=== PATIENT | female | born 1965 | race Caucasian/White ===

== ENCOUNTER 2017-12-29 16:52 | Emergency (ER) | payer MEDICAID ==
[~2017-12-29] VITALS: Ht 162.6 cm; Wt 59.1 kg
[~2017-12-29 16:52] MED LIST: PRED5TAB PO
== END 2017-12-29 17:44 | disposition left against medical advice (07) ==
LOC: ER 16:52
DX: K08.89 Other specified disorders of teeth and supporting structures (principal); Z53.21 Procedure and treatment not carried out due to patient leaving prior to being seen by health care provider

== ENCOUNTER 2018-07-13 00:15 | Emergency (ER) | payer MEDICAID | END 2018-07-13 00:57 | disposition left against medical advice (07) | LOC: ER 00:15 | DX: T63.301A Toxic effect of unspecified spider venom, accidental (unintentional), initial encounter (principal); Z53.21 Procedure and treatment not carried out due to patient leaving prior to being seen by health care provider; Y92.89 Other specified places as the place of occurrence of the external cause ==

== ENCOUNTER 2018-09-21 19:39 | Emergency (ER) | payer MEDICAID ==
[~2018-09-21] VITALS: Ht 162.6 cm; Wt 56.8 kg
[2018-09-21] MEDS ORDERED: morphine 4 MG/ML inj SYRINge IV ONE ×2 (20:50→22:55)
[2018-09-21] MEDS ORDERED: normal saline 1000ML IV soln IVB ONE (20:50)
[2018-09-21] MEDS ORDERED: iohexol 300mg/ml 100ml inj. ONE (20:52)
[2018-09-21 21:13] LABS: BASOPHILS # (AUTO) 0.1 X10'3 (0-0.2); EOSINOPHILS # (AUTO) 0.2 X10'3 (0-0.9); EOSINOPHILS % (AUTO) 2.3 % (0-6); HEMATOCRIT 40.5 % (35.0-45.0); HEMOGLOBIN 13.6 g/dl (12.0-16.0); LYMPHOCYTES # (AUTO) 2.6 X10'3 (1.1-4.8); LYMPHOCYTES % (AUTO) 28.4 % (21-51); MEAN CORPUSCULAR HEMOGLOBIN 29.4 PG (27.0-31.0); MEAN CORPUSCULAR HGB CONC 33.6 g/dL (33.0-36.5); MEAN CORPUSCULAR VOLUME 87.4 FL (78-98); MEAN PLATELET VOLUME 7.4 FL (7.4-10.4); MONOCYTES # (AUTO) 0.8 X10'3 (0-0.9); MONOCYTES % (AUTO) 8.3 % (2-12); NEUTROPHILS # (AUTO) 5.4 X10'3 (1.8-7.7); PLATELET COUNT 293 X10'3 (140-440); RED BLOOD COUNT 4.64 X10'6 (4.20-5.60); RED CELL DISTRIBUTION WIDTH 13.8 % (11.5-14.5); WHITE BLOOD COUNT 9.1 X10'3 (4.5-11.0)
[2018-09-21 21:21] LABS: ALANINE AMINOTRANSFERASE 40 U/L (12-78); ALBUMIN 3.6 G/DL (3.4-5.0); ALBUMIN/GLOBULIN RATIO 0.9 (1.1-1.5); ALKALINE PHOSPHATASE 55 IU/L (46-116); ANION GAP 8 (8-16); ASPARTATE AMINO TRANSFERASE 24 U/L (10-37); BILIRUBIN,TOTAL 0.4 MG/DL (0.1-1.0); BLOOD UREA NITROGEN 20 MG/DL (7-18); CALCIUM 8.9 MG/DL (8.5-10.1); CHLORIDE 104 MMOL/L (99-107); CREATININE 1.11 MG/DL (0.40-0.90); GLUCOSE 106 MG/DL (70-104); POTASSIUM 3.8 MMOL/L (3.5-5.1); SODIUM 139 MMOL/L (135-145); TOTAL PROTEIN 7.8 G/DL (6.4-8.2); eGFR 51 ML/MIN
[2018-09-21] MEDS ORDERED: HYDR-3965 PO (21:54)
[2018-09-21 22:22] VITALS: BP 189/112
== END 2018-09-21 23:06 | disposition home or self-care (01) ==
LOC: ER 19:39
DX: R07.81 Pleurodynia (principal); R10.11 Right upper quadrant pain; R50.9 Fever, unspecified; I10 Essential (primary) hypertension; J45.909 Unspecified asthma, uncomplicated; F17.200 Nicotine dependence, unspecified, uncomplicated; Z88.7 Allergy status to serum and vaccine; Z79.899 Other long term (current) drug therapy; W01.0XXA Fall on same level from slipping, tripping and stumbling without subsequent striking against object, initial encounter; Y93.89 Activity, other specified; Y92.89 Other specified places as the place of occurrence of the external cause; Y99.8 Other external cause status
CPT/HCPCS: 36415; 74176; 80053; 85025; 96374; 96376; 99284; J2270; J7030; Q9967

== ENCOUNTER 2019-04-07 16:55 | Emergency (ER) | payer MEDICAID ==
[~2019-04-07] VITALS: Ht 162.6 cm; Wt 59.1 kg
--- NOTE | 2019-04-07 17:18 | NUR ---
PT IS 53 YO FEMALE C/O LEFT FLANK PAIN, +N/V, VOMITED 3X IN THE PAST 2 DAYS, H/O KIDNEY STONES, "I NEED A STENT...WAS HOMELESS AND NOW I AM NOT....I JUST NEED A DOCTOR I MOVED FROM [place] TO HERE"
[2019-04-07 17:25] LABS: CLARITY,URINE SLIGHTLY CLOUDY (Clear); COLOR,URINE STRAW (Yellow); GLUCOSE, URINE NEGATIVE (Neg); KETONES,URINE NEGATIVE (Neg); LEUKOCYTE ESTERASE ,URINE SMALL (Neg); NITRITES, URINE POSITIVE (Neg); OCCULT BLOOD,URINE NEGATIVE (Neg); PROTEIN,URINE NEGATIVE (Neg); UA COLLECTION TYPE CLN CATCH MIDSTREAM; UROBILINOGEN,URINE 0.2 E.U/dL (0.2-1.0)
[2019-04-07] MEDS ORDERED: normal saline 1000ML IV soln IVB ONE (17:35)
[2019-04-07] MEDS ORDERED: ketorolac trometh. 30mg/ml inj. IV ONE (17:35)
[2019-04-07 17:38] LABS: SQUAMOUS EPITHELIAL CELL,UR MANY /LPF (FEW)
[2019-04-07 17:40] LABS: BACTERIA,URINE 4+ /HPF (Neg); RBC,URINE 0-2 /HPF (0-2); WBC CLUMPS,URINE FEW /HPF (NEGATIVE)
[2019-04-07 18:10] LABS: BASOPHILS % (AUTO) 0.2 % (0-1); EOSINOPHILS # (AUTO) 0.4 X10'3 (0-0.9); EOSINOPHILS % (AUTO) 4.7 % (0-6); HEMATOCRIT 40.8 % (35.0-45.0); HEMOGLOBIN 13.1 g/dl (12.0-16.0); LYMPHOCYTES # (AUTO) 3.5 X10'3 (1.1-4.8); LYMPHOCYTES % (AUTO) 40.1 % (21-51); MEAN CORPUSCULAR HEMOGLOBIN 27.9 PG (27.0-31.0); MEAN CORPUSCULAR VOLUME 87.3 FL (78-98); MEAN PLATELET VOLUME 7.8 FL (7.4-10.4); MONOCYTES # (AUTO) 0.7 X10'3 (0-0.9); MONOCYTES % (AUTO) 8.6 % (2-12); NEUTROPHILS % (AUTO) 46.4 % (42-75); PLATELET COUNT 285 X10'3 (140-440); RED BLOOD COUNT 4.67 X10'6 (4.20-5.60); RED CELL DISTRIBUTION WIDTH 13.5 % (11.5-14.5); WHITE BLOOD COUNT 8.6 X10'3 (4.5-11.0)
[2019-04-07 18:21] LABS: ALANINE AMINOTRANSFERASE 32 U/L (12-78); ALBUMIN 3.2 G/DL (3.4-5.0); ALBUMIN/GLOBULIN RATIO 0.7 (1.1-1.5); ALKALINE PHOSPHATASE 61 IU/L (46-116); ANION GAP 8 (8-16); ASPARTATE AMINO TRANSFERASE 23 U/L (10-37); BILIRUBIN,TOTAL 0.2 MG/DL (0.1-1.0); BLOOD UREA NITROGEN 26 MG/DL (7-18); CALCIUM 8.7 MG/DL (8.5-10.1); CHLORIDE 104 MMOL/L (99-107); CREATININE 1.04 MG/DL (0.40-0.90); GLUCOSE 82 MG/DL (70-104); SODIUM 142 MMOL/L (135-145); TOTAL CARBON DIOXIDE 30.3 MMOL/L (24-32); TOTAL PROTEIN 7.5 G/DL (6.4-8.2); eGFR 55 ML/MIN
[2019-04-07] MEDS ORDERED: BACDS PO (18:36)
[2019-04-07 18:59] VITALS: BP 124/93
== END 2019-04-07 19:02 | disposition home or self-care (01) ==
LOC: ER 16:57
DX: N39.0 Urinary tract infection, site not specified (principal); I10 Essential (primary) hypertension; J45.909 Unspecified asthma, uncomplicated; Z88.7 Allergy status to serum and vaccine; Z79.2 Long term (current) use of antibiotics; Z79.899 Other long term (current) drug therapy; Z72.0 Tobacco use
CPT/HCPCS: 36415; 80053; 81001; 85025; 96374; 99283; J1885; J7030

== ENCOUNTER 2019-07-13 14:17 | Emergency (ER) | payer MEDICAID ==
[~2019-07-13] VITALS: Ht 162.6 cm; Wt 60.0 kg
[2019-07-13] MEDS ORDERED: aspirin 81mg tab.chew PO ONE (14:25)
[2019-07-13 14:33] LABS: BASOPHILS # (AUTO) 0.1 X10'3 (0-0.2); EOSINOPHILS # (AUTO) 0.2 X10'3 (0-0.9); EOSINOPHILS % (AUTO) 1.9 % (0-6); HEMOGLOBIN 13.9 g/dl (12.0-16.0); LYMPHOCYTES # (AUTO) 3.2 X10'3 (1.1-4.8); LYMPHOCYTES % (AUTO) 31.4 % (21-51); MEAN CORPUSCULAR HEMOGLOBIN 28.6 PG (27.0-31.0); MEAN CORPUSCULAR HGB CONC 33.1 g/dL (33.0-36.5); MEAN CORPUSCULAR VOLUME 86.4 FL (78-98); MEAN PLATELET VOLUME 7.3 FL (7.4-10.4); MONOCYTES # (AUTO) 0.8 X10'3 (0-0.9); MONOCYTES % (AUTO) 8.3 % (2-12); NEUTROPHILS # (AUTO) 5.8 X10'3 (1.8-7.7); NEUTROPHILS % (AUTO) 57.4 % (42-75); PLATELET COUNT 296 X10'3 (140-440); RED BLOOD COUNT 4.86 X10'6 (4.20-5.60); RED CELL DISTRIBUTION WIDTH 13.6 % (11.5-14.5); WHITE BLOOD COUNT 10.2 X10'3 (4.5-11.0)
[2019-07-13 14:48] LABS: ALANINE AMINOTRANSFERASE 48 U/L (12-78); ALBUMIN 4.1 G/DL (3.4-5.0); ALKALINE PHOSPHATASE 69 IU/L (46-116); ANION GAP 6 (8-16); ASPARTATE AMINO TRANSFERASE 37 U/L (10-37); BILIRUBIN,TOTAL 0.6 MG/DL (0.1-1.0); BLOOD UREA NITROGEN 15 MG/DL (7-18); BUN/CREATININE RATIO 14.4 (6.6-38.0); CALCIUM 9.2 MG/DL (8.5-10.1); CHLORIDE 104 MMOL/L (99-107); CREATININE 1.04 MG/DL (0.40-0.90); GLUCOSE 107 MG/DL (70-104); POTASSIUM 3.7 MMOL/L (3.5-5.1); SODIUM 140 MMOL/L (135-145); TOTAL CARBON DIOXIDE 29.9 MMOL/L (24-32); TOTAL PROTEIN 8.3 G/DL (6.4-8.2); eGFR 55 ML/MIN
[2019-07-13 14:54] LABS: MAGNESIUM 1.9 MG/DL (1.5-2.4)
[2019-07-13] MEDS ORDERED: LORazepam 2 mg/ml vial IV ONE (15:10)
[2019-07-13] MEDS ORDERED: ondansetron/PF 4mg/2ml inj IV ONE (15:10)
[2019-07-13] MEDS ORDERED: glucagon, human recombinant 4 MG in normal saline 100ml IV soln 100 ML IV ONE ×2 (15:10)
--- NOTE | 2019-07-13 15:30 | NUR ---
PT. OFF TO GI LAB VIA W/C WITH JUN
[2019-07-13] MEDS ORDERED: normal saline 1000ML IV soln IVB ONE (15:45)
[2019-07-13] MEDS ORDERED: MIDAZolam 5mg/5ml vial ONE (15:57)
[2019-07-13] MEDS ORDERED: fentaNYL/PF 50MCG/1 ML 2ML syringe ONE (15:57)
[2019-07-13] MEDS ORDERED: LIDOcaine Viscous 15ml cup ONE (15:57)
[2019-07-13 16:10] VITALS: BP 161/98
[2019-07-13] MEDS ORDERED: diphenhydrAMINE 50 mg/ml inj ONE (16:33)
[2019-07-13 16:55] VITALS: BP 152/100
[2019-07-13 17:05] VITALS: BP 145/99
[2019-07-13 17:15] VITALS: BP 137/89
[2019-07-13 17:27] VITALS: BP 138/92
[2019-07-13] MEDS ORDERED: OMEP40CA13 PO (17:36)
--- NOTE | 2019-07-13 17:45 | NUR ---
PT. BACK FROM GI LAB WITH RN WITH GI LAB: RECEIVED 25MG OF BENADRYL, 5MCG VERSED, 125MCG FENTANYL ZERO FOOD OR LIQUIDS FOR ONE HOUR START ON CLEAR LIQUIDS, TOMORROW FULL LIQUID, 2 DAYS OUT SOFT FOODS
[2019-07-13 18:42] VITALS: BP 129/82
== END 2019-07-13 19:03 | disposition home or self-care (01) ==
LOC: ER 14:17
DX: T18.198A Other foreign object in esophagus causing other injury, initial encounter (principal); R51 Headache; I10 Essential (primary) hypertension; J45.909 Unspecified asthma, uncomplicated; F10.99 Alcohol use, unspecified with unspecified alcohol-induced disorder; H57.13 Ocular pain, bilateral; Z88.7 Allergy status to serum and vaccine; Z79.899 Other long term (current) drug therapy; X58.XXXA Exposure to other specified factors, initial encounter; Y93.89 Activity, other specified; Y92.89 Other specified places as the place of occurrence of the external cause; Y99.8 Other external cause status; Y90.9 Presence of alcohol in blood, level not specified
CPT/HCPCS: 36415; 43247; 43248; 71045; 80053; 83735; 83880; 84484; 85025; 93005; 96365; 96375; 99152; 99153; 99285; C1769; C1773; J1200; J1610; J2060; J2250; J2405; J3010; J7030; J7040

== ENCOUNTER 2019-07-18 16:45 | Emergency (ER) | payer MEDICAID ==
[~2019-07-18] VITALS: Ht 162.6 cm; Wt 60.0 kg
[~2019-07-18 16:45] MED LIST changes: +OMEP40CA13 PO
[2019-07-18] MEDS ORDERED: normal saline 1000ML IV soln IVB ONE (17:10)
[2019-07-18] MEDS ORDERED: LORazepam 2 mg/ml vial IV ONE (17:10)
[2019-07-18] MEDS ORDERED: pantoprazole 40 MG vial IV ONE (17:10)
[2019-07-18] MEDS ORDERED: ondansetron/PF 4mg/2ml inj IV ONE (17:10)
[2019-07-18 17:54] LABS: BASOPHILS # (AUTO) 0.1 X10'3 (0-0.2); BASOPHILS % (AUTO) 0.9 % (0-1); EOSINOPHILS # (AUTO) 0.2 X10'3 (0-0.9); EOSINOPHILS % (AUTO) 2.1 % (0-6); HEMATOCRIT 39.6 % (35.0-45.0); HEMOGLOBIN 13.2 g/dl (12.0-16.0); LYMPHOCYTES # (AUTO) 3.5 X10'3 (1.1-4.8); LYMPHOCYTES % (AUTO) 41.2 % (21-51); MEAN CORPUSCULAR HEMOGLOBIN 28.3 PG (27.0-31.0); MEAN CORPUSCULAR HGB CONC 33.3 g/dL (33.0-36.5); MEAN CORPUSCULAR VOLUME 84.9 FL (78-98); MEAN PLATELET VOLUME 7.2 FL (7.4-10.4); MONOCYTES # (AUTO) 0.5 X10'3 (0-0.9); MONOCYTES % (AUTO) 5.4 % (2-12); NEUTROPHILS # (AUTO) 4.3 X10'3 (1.8-7.7); NEUTROPHILS % (AUTO) 50.4 % (42-75); PLATELET COUNT 355 X10'3 (140-440); RED BLOOD COUNT 4.67 X10'6 (4.20-5.60); RED CELL DISTRIBUTION WIDTH 13.2 % (11.5-14.5); WHITE BLOOD COUNT 8.5 X10'3 (4.5-11.0)
[2019-07-18 18:01] LABS: PARTIAL THROMBOPLASTIN TIME 26 SECONDS (22-32)
[2019-07-18 18:03] LABS: ALANINE AMINOTRANSFERASE 40 U/L (12-78); ALBUMIN 3.7 G/DL (3.4-5.0); ALBUMIN/GLOBULIN RATIO 0.9 (1.1-1.5); ALKALINE PHOSPHATASE 64 IU/L (46-116); ANION GAP 11 (8-16); ASPARTATE AMINO TRANSFERASE 40 U/L (10-37); BILIRUBIN,TOTAL 0.3 MG/DL (0.1-1.0); BLOOD UREA NITROGEN 16 MG/DL (7-18); BUN/CREATININE RATIO 13.7 (6.6-38.0); CALCIUM 8.8 MG/DL (8.5-10.1); CHLORIDE 103 MMOL/L (99-107); CREATININE 1.17 MG/DL (0.40-0.90); GLUCOSE 91 MG/DL (70-104); SODIUM 141 MMOL/L (135-145); TOTAL CARBON DIOXIDE 27.3 MMOL/L (24-32); eGFR 48 ML/MIN
[2019-07-18 18:11] LABS: ETHANOL 0.159 GM/DL (0.0-0.010); MAGNESIUM 1.7 MG/DL (1.5-2.4)
[2019-07-18 18:42] LABS: CLARITY,URINE SLIGHTLY CLOUDY (Clear); COLOR,URINE YELLOW (Yellow); GLUCOSE, URINE NEGATIVE (Neg); KETONES,URINE NEGATIVE (Neg); LEUKOCYTE ESTERASE ,URINE LARGE (Neg); NITRITES, URINE POSITIVE (Neg); OCCULT BLOOD,URINE SMALL (Neg); PROTEIN,URINE NEGATIVE (Neg); UROBILINOGEN,URINE 0.2 E.U/dL (0.2-1.0)
[2019-07-18 18:51] LABS: UA COLLECTION TYPE CLN CATCH MIDSTREAM
[2019-07-18 18:52] LABS: BACTERIA,URINE 1+ /HPF (Neg); RBC,URINE 0-2 /HPF (0-2); SQUAMOUS EPITHELIAL CELL,UR FEW /LPF (FEW); WBC CLUMPS,URINE FEW /HPF (NEGATIVE); WBC,URINE 50-100 /HPF (0-4)
[2019-07-18] MEDS ORDERED: CefTRIAXone 2gm/D5W 50ml 50 ML IV ONE (19:00)
[2019-07-18] MEDS ORDERED: PANT20TA3 PO (19:01)
[2019-07-18] MEDS ORDERED: CEPH250T PO (19:01)
--- NOTE | 2019-07-18 19:24 | NUR ---
Pt's family member Mel Allison phoned to pick her up for transportation home after discharge.
[2019-07-18 19:35] VITALS: BP 151/91
[2019-07-18] MEDS ORDERED: ALBU6.7H9 INH (19:39)
== END 2019-07-18 19:48 | disposition home or self-care (01) ==
LOC: ER 16:45
DX: R07.89 Other chest pain (principal); F10.920 Alcohol use, unspecified with intoxication, uncomplicated; R11.10 Vomiting, unspecified; N39.0 Urinary tract infection, site not specified; I10 Essential (primary) hypertension; J45.909 Unspecified asthma, uncomplicated; Z87.01 Personal history of pneumonia (recurrent); Z88.7 Allergy status to serum and vaccine; Z79.899 Other long term (current) drug therapy; Y90.9 Presence of alcohol in blood, level not specified
CPT/HCPCS: 36415; 71045; 80053; 80320; 81001; 83735; 83880; 84484; 85025; 85610; 85730; 87077; 87088; 87186; 93005; 96361; 96365; 96375; 99284; C9113; J0696; J2060; J2405; J7030

== ENCOUNTER 2019-07-27 22:17 | Inpatient (IN) | payer MEDICAID ==
[~2019-07-27] VITALS: Ht 162.6 cm; Wt 59.0 kg
[~2019-07-27 22:17] MED LIST changes: +ALBU6.7H9 INH; +PANT20TA3 PO; -PRED5TAB PO
[2019-07-27 23:28] LABS: CLARITY,URINE CLOUDY (Clear); COLOR,URINE YELLOW (Yellow); GLUCOSE, URINE NEGATIVE (Neg); KETONES,URINE NEGATIVE (Neg); LEUKOCYTE ESTERASE ,URINE LARGE (Neg); NITRITES, URINE POSITIVE (Neg); OCCULT BLOOD,URINE SMALL (Neg); PH,URINE 5.5 (4.8-8.0); PROTEIN,URINE NEGATIVE (Neg); UROBILINOGEN,URINE 0.2 E.U/dL (0.2-1.0)
[2019-07-27 23:32] LABS: UA COLLECTION TYPE CLN CATCH MIDSTREAM
[2019-07-27 23:34] LABS: BACTERIA,URINE 3+ /HPF (Neg); MUCUS STRANDS MODERATE /LPF (Neg); RBC,URINE 0-2 /HPF (0-2); SQUAMOUS EPITHELIAL CELL,UR MODERATE /LPF (FEW); WBC,URINE TNTC /HPF (0-4)
[2019-07-27] MEDS ORDERED: normal saline 1000ML IV soln IVB ONE (23:55)
[2019-07-27] MEDS ORDERED: morphine 4 MG/ML inj SYRINge IV ONE (23:55)
[2019-07-27] MEDS ORDERED: ondansetron/PF 4mg/2ml inj IV ONE (23:55)
[2019-07-27] MEDS ORDERED: pantoprazole 40 MG vial IV ONE (23:55)
[2019-07-28] VITALS (8 sets, daily range): BP systolic 115–180; BP diastolic 67–95
[2019-07-28] MEDS ORDERED: iohexol 300mg/ml 100ml inj. ONE (00:11)
[2019-07-28 00:27] LABS: BASOPHILS # (AUTO) 0.1 X10'3 (0-0.2); BASOPHILS % (AUTO) 0.9 % (0-1); EOSINOPHILS # (AUTO) 0.2 X10'3 (0-0.9); EOSINOPHILS % (AUTO) 1.6 % (0-6); HEMATOCRIT 36.9 % (35.0-45.0); HEMOGLOBIN 12.2 g/dl (12.0-16.0); LYMPHOCYTES # (AUTO) 2.7 X10'3 (1.1-4.8); LYMPHOCYTES % (AUTO) 21.6 % (21-51); MEAN CORPUSCULAR HEMOGLOBIN 28.2 PG (27.0-31.0); MEAN CORPUSCULAR VOLUME 85.4 FL (78-98); MEAN PLATELET VOLUME 7.1 FL (7.4-10.4); MONOCYTES # (AUTO) 1.1 X10'3 (0-0.9); NEUTROPHILS # (AUTO) 8.3 X10'3 (1.8-7.7); NEUTROPHILS % (AUTO) 66.9 % (42-75); PLATELET COUNT 310 X10'3 (140-440); RED BLOOD COUNT 4.32 X10'6 (4.20-5.60); RED CELL DISTRIBUTION WIDTH 13.6 % (11.5-14.5); WHITE BLOOD COUNT 12.4 X10'3 (4.5-11.0)
[2019-07-28 00:45] LABS: ALANINE AMINOTRANSFERASE 39 U/L (12-78); ALBUMIN 3.4 G/DL (3.4-5.0); ALBUMIN/GLOBULIN RATIO 0.8 (1.1-1.5); ALKALINE PHOSPHATASE 66 IU/L (46-116); ANION GAP 10 (8-16); ASPARTATE AMINO TRANSFERASE 27 U/L (10-37); BILIRUBIN,TOTAL 0.7 MG/DL (0.1-1.0); BLOOD UREA NITROGEN 15 MG/DL (7-18); BUN/CREATININE RATIO 18.1 (6.6-38.0); CALCIUM 8.4 MG/DL (8.5-10.1); CHLORIDE 104 MMOL/L (99-107); CREATININE 0.83 MG/DL (0.40-0.90); GLUCOSE 109 MG/DL (70-104); POTASSIUM 3.7 MMOL/L (3.5-5.1); SODIUM 139 MMOL/L (135-145); TOTAL CARBON DIOXIDE 25.2 MMOL/L (24-32); TOTAL PROTEIN 7.5 G/DL (6.4-8.2); eGFR 71 ML/MIN
--- NOTE | 2019-07-28 00:59 | NUR ---
PATIENT BACK IN ROOM FROM CT, IN [place] COVERS ON EYES CLOSED RR EVEN UN LABORED NO OBSERVABLE S/S OF ACUTE STRESS AT THIS TIME WILL CONTINUE TO MONITOR
[2019-07-28] MEDS ORDERED: CefTRIAXone/D5W-Rocephin 1gm 50 ML IV ONE (01:30)
[2019-07-28] MEDS ORDERED: morphine 4 MG/ML inj SYRINge IV ONE (01:35)
[2019-07-28] MEDS ORDERED: magnesium hydroxide 30ml (MOM) UD suspension PO PRN (01:50)
[2019-07-28] MEDS ORDERED: acetaminophen 325mg tablet PO PRN (01:50)
[2019-07-28] MEDS ORDERED: magnesium Cl slow-release 64mg tablet PO PRN (01:50)
[2019-07-28] MEDS ORDERED: ondansetron/PF 4mg/2ml inj IV PRN ×2 (01:50→17:40)
[2019-07-28] MEDS ORDERED: morphine 2 MG/ML inj. syringe IV PRN (01:50)
[2019-07-28] MEDS ORDERED: magnesium 4gm in 100ml NS 100 ML IV PRN (01:50)
[2019-07-28] MEDS ORDERED: HYDROcodone/acetaminophen 5mg/325mg tablet PO PRN (01:50)
[2019-07-28] MEDS ORDERED: potassium CL 10mEq/100ml bag 100 ML IV PRN ×2 (01:50)
[2019-07-28] MEDS ORDERED: mag hydrox/Alum hydrox/simeth 30ml oral suspension PO PRN (01:50)
[2019-07-28] MEDS ORDERED: potassium Cl 20 mEq SR tablet PO PRN ×2 (01:50)
[2019-07-28] MEDS ORDERED: magnesium 2GM in 50ml NS 50 ML IV PRN (01:50)
[2019-07-28] MEDS ORDERED: NO HOME MEDS (02:10)
--- NOTE | 2019-07-28 03:00 | NUR ---
Meir royal in ED - 07/28/19 at 0513 by SANCHO PATIENT IN BED EYES CLOSED COVERS ON RR EVEN UN LABORED NO OBSERVABLE S/S OF ACUTE STRESS /PAIN AT THIS TIME WILL CONTINUE TO MONITOR
--- NOTE | 2019-07-28 03:00 | NUR ---
PATIENT IN BED EYES CLOSED COVERS ON RR EVEN UN LABORED NO OBSERVABLE S/S OF ACUTE STRESS AT THIS TIME WILL CONTINUE TO MONITOR
[2019-07-28] MEDS ORDERED: HYDROmorphone inj. 0.5 MG/0.5 ML DISP.SYRIN IV ONE (03:50)
--- NOTE | 2019-07-28 05:12 | NUR ---
PATIENT IN BED EYES CLOSED RR EVEN UN LABORED NO OBSERVABLE S/S OF ACUTE STRESS /PAIN AT THIS TIME WILL CONTINUE TO MONITOR
--- NOTE | 2019-07-28 05:30 | NUR ---
PATIENT UP WITH STANDBYE ASSIST TO THE BATHROOM WITH OUT ANY TROUBLE PATIENT WAS OBSERVED AMBULATING WITH A STEADY GAIT
--- NOTE | 2019-07-28 05:46 | NUR ---
Meir royal in [facility] - 07/28/[address] ESTRADA AT BEDSIDE, STATES " SHE CAN HAVE A LITTLE WATER." BUT NEEDS TO STAY NPO
--- NOTE | 2019-07-28 05:47 | NUR ---
Ta ESTRADA AT BEDSIDE, STATES " PATIENT CAN HAVE A LITTLE WATER BUT STAY NPO."
--- NOTE | 2019-07-28 06:30 | NUR ---
SBAR TO JEFERSON BARAHONA NO QUESTIONS OR CONCERNS AFTER ASSUMING CARE
[2019-07-28] MEDS: K and/or MAG REPLACEMENT MC SCH ×2 (08:00→19:35)
[2019-07-28] MEDS: CefTRIAXone 2gm/D5W 50ml 50 ML IV SCH (10:18)
[2019-07-28 10:23] LABS: MAGNESIUM 1.9 MG/DL (1.5-2.4)
--- NOTE | 2019-07-28 15:41 | NUR ---
confirmed with Dr. Herrera that is was ok for pt. to be NPO at this time with no orders for IV fluids. no new orders at this time.
[2019-07-28 16:05] LABS: PARTIAL THROMBOPLASTIN TIME 26 SECONDS (22-32)
[2019-07-28] MEDS ORDERED: ringers solution, lacted 1,000 ML IV SCH (17:40)
[2019-07-28] MEDS ORDERED: fentaNYL/PF 50MCG/1 ML 2ML syringe IV PRN ×2 (17:40)
[2019-07-28] MEDS ORDERED: labetalol 20mg/4ml (5mg/ml) syringe IV PRN (17:40)
[2019-07-28] MEDS ORDERED: hydrALAZINE 20mg/ml inj. IV PRN (17:40)
[2019-07-28] MEDS ORDERED: morphine 4 MG/ML inj SYRINge IV PRN ×2 (17:40)
--- NOTE | 2019-07-28 18:05 | NUR ---
pt. was taken to OR for procedure. report called into JUN Truong in Short Stay.
--- NOTE | 2019-07-28 18:30 | NUR ---
Problems reprioritized. Patient report given, questions answered & plan of care reviewed with JUN Richardson.
[2019-07-28] MEDS ORDERED: iohexol 300 MG/1 ML 50ml polymer ONE (18:50)
[2019-07-28] MEDS ORDERED: midazolam 2 mg/2 ml injection ONE (19:00)
[2019-07-28] MEDS ORDERED: fentaNYL/PF 50MCG/1 ML 2ML syringe ONE (19:00)
[2019-07-28] MEDS ORDERED: LIDOcaine 2% (20mg/ml) 5ml vial ONE (19:02)
[2019-07-28] MEDS ORDERED: propofol inj 20 ML IV ONE (19:02)
[2019-07-28] MEDS ORDERED: ondansetron/PF 4mg/2ml inj ONE (19:02)
[2019-07-28] MEDS ORDERED: dexamethasone sod phosphate 10mg/ml inj ONE (19:08)
[2019-07-28] MEDS ORDERED: sevoflurane 250ml liquid IH ONE (19:08)
--- NOTE | 2019-07-28 19:44 | NUR ---
Received from OR via SURGICAL BED , accompanied by Anesthesiologist LATIA and report given by Anesthesiolgist. PATIENT WITH 20G PIV IN RIGHT UE RUNNING LR AT 100. NO DRAINS. NO INCISIONS. NO C.O. AT THIS TIME. VSS. Addendum: 07/28/19 at 2001 by Alexi Shore RN, RN Amended: Links added.
--- NOTE | 2019-07-28 20:24 | NUR ---
ALL CRITERIA FOR TRANSFER TO THE FLOOR HAS BEEN ACHIEVED. VSS. BED LOW, CALL LIGHT AND VS. SET IN PLACE. RN PRESENT TO ACCEPT CARE. PATIENT RESTING COMFORTABLY IN BED. BELONGINGS SENT WITH PATIENT. DRESSINGS CDI. Addendum: 07/28/19 at 2035 by Alexi Shore RN RN Amended: Links added.
--- NOTE | 2019-07-28 20:24 | NUR ---
ALL CRITERIA FOR TRANSFER TO THE FLOOR HAS BEEN ACHIEVED. VSS. BED LOW, CALL LIGHT AND VS. SET IN PLACE. RN PRESENT TO ACCEPT CARE. PATIENT RESTING COMFORTABLY IN BED. BELONGINGS SENT WITH PATIENT. DRESSINGS CDI. Addendum: 07/28/19 at 2025 by Alexi Shore RN RN Amended: Links added.
[2019-07-28] MEDS: morphine 2 MG/ML inj. syringe IV PRN (20:52)
[2019-07-28] MEDS ORDERED: HYDROmorphone inj. 0.5 MG/0.5 ML DISP.SYRIN IV PRN (21:45)
[2019-07-28] MEDS: HYDROmorphone 1 mg/ml syringe IV PRN (21:56)
--- NOTE | 2019-07-28 22:00 | NUR ---
2100-Patient return back from recovery. Per report from Alexi BARAHONA, Patient had void 50ml prior to arriving to the floor. Patient in excruciating pain right when patient return to room. Patient stated she feels like she needs to pee, Patient was able to void in the toliet no hat was in there at the time. Patient instructed to void in the hat next time, and educated that we will be straining her urine. Patient states understanding. Bladder scan show only 16ml. MD notified of pain. Orders for Dilaudid for severe pain, Patient also started on Ditropan and flomax tonight.
[2019-07-28] MEDS ORDERED: tamsulosin 0.4mg capsule PO SCH (22:05)
[2019-07-28] MEDS: oxybutynin 5mg tablet PO SCH (22:26)
[2019-07-29] VITALS: BP 125/82
[2019-07-29] MEDS: HYDROmorphone 1 mg/ml syringe IV PRN ×3 (01:42→12:46)
[2019-07-29 04:00] VITALS: BP 122/104
--- NOTE | 2019-07-29 04:30 | NUR ---
Continue with pain management. Patient continue to to have left flank pain. Straining urine. No stones yet.
[2019-07-29] MEDS: morphine 2 MG/ML inj. syringe IV PRN (04:52)
[2019-07-29 05:30] LABS: BASOPHILS % (AUTO) 0.4 % (0-1); EOSINOPHILS % (AUTO) 0.1 % (0-6); HEMATOCRIT 39.6 % (35.0-45.0); HEMOGLOBIN 12.9 g/dl (12.0-16.0); LYMPHOCYTES # (AUTO) 1.5 X10'3 (1.1-4.8); LYMPHOCYTES % (AUTO) 22.9 % (21-51); MEAN CORPUSCULAR HEMOGLOBIN 28.1 PG (27.0-31.0); MEAN CORPUSCULAR HGB CONC 32.7 g/dL (33.0-36.5); MEAN CORPUSCULAR VOLUME 86.1 FL (78-98); MEAN PLATELET VOLUME 7.8 FL (7.4-10.4); MONOCYTES # (AUTO) 0.1 X10'3 (0-0.9); MONOCYTES % (AUTO) 2.3 % (2-12); NEUTROPHILS # (AUTO) 4.7 X10'3 (1.8-7.7); NEUTROPHILS % (AUTO) 74.3 % (42-75); PLATELET COUNT 346 X10'3 (140-440); RED CELL DISTRIBUTION WIDTH 13.8 % (11.5-14.5); WHITE BLOOD COUNT 6.3 X10'3 (4.5-11.0)
[2019-07-29 05:52] LABS: ALBUMIN 3.4 G/DL (3.4-5.0); ANION GAP 10 (8-16); BLOOD UREA NITROGEN 12 MG/DL (7-18); BUN/CREATININE RATIO 12.9 (6.6-38.0); CALCIUM 8.8 MG/DL (8.5-10.1); CHLORIDE 106 MMOL/L (99-107); CREATININE 0.93 MG/DL (0.40-0.90); GLUCOSE 135 MG/DL (70-104); MAGNESIUM 1.9 MG/DL (1.5-2.4); POTASSIUM 4.6 MMOL/L (3.5-5.1); SODIUM 143 MMOL/L (135-145); eGFR 63 ML/MIN
[2019-07-29 06:00] VITALS: BP 121/70
--- NOTE | 2019-07-29 06:30 | NUR ---
Problems reprioritized. Patient report given, questions answered & plan of care reviewed with Stew BARAHONA.
--- NOTE | 2019-07-29 06:39 | NUR ---
Patient in room REJI 360. I have received report from JUN Serrano and had the opportunity to ask questions and assume patient care.
[2019-07-29] MEDS: K and/or MAG REPLACEMENT MC SCH (07:10)
[2019-07-29] MEDS: oxybutynin 5mg tablet PO SCH ×2 (08:09→12:45)
[2019-07-29] MEDS: CefTRIAXone 2gm/D5W 50ml 50 ML IV SCH (08:19)
[2019-07-29] MEDS ORDERED: pneumococcal 23-VAL P-sac vacc 25 mcg/0.5ml vial IMVAC ONE (10:00)
[2019-07-29 12:00] VITALS: BP 138/75
[2019-07-29] MEDS ORDERED: AMOX-422 PO (12:08)
[2019-07-29] MEDS ORDERED: HYDR-4383 PO (12:08)
--- NOTE | 2019-07-29 13:09 | NUR ---
Per patient her ride for discharge will be here this evening.
--- NOTE | 2019-07-29 13:09 | NUR ---
PAGER ID: [phone] MESSAGE: [id number] Alexus Almanza was wondering if she could get an albuterol inhaler here. JUN Mancuso Ext [phone]
--- NOTE | 2019-07-29 15:04 | NUR ---
Discharged. Stable per MD for DC. PIV taken out. Educated on DC instructions, meds and follow-up. Took all belongings. Daughter was patient's ride. Medicare DC rights signed. ID band cut off. Med called into [facility] on [address].
== END 2019-07-29 15:08 | disposition home or self-care (01) | DRG 463 ==
LOC: ER 22:18 → ED HOLD 07-28 02:21 → EDBEDREQ 07-28 05:36 → SUR 3N 07-28 06:59
PROVIDERS: ADMIT Hospitalist; ATTEND Family Medicine
PROC: BT1F1ZZ Fluoroscopy of Left Kidney, Ureter and Bladder using Low Osmolar Contrast (ICD-10-PCS; 2019-07-28)
PROC: BW211ZZ Computerized Tomography (CT Scan) of Abdomen and Pelvis using Low Osmolar Contrast (ICD-10-PCS; 2019-07-28)
PROC: 0T778DZ Dilation of Left Ureter with Intraluminal Device, Via Natural or Artificial Opening Endoscopic (ICD-10-PCS; principal; 2019-07-28 19:08)
DX: N13.6 Pyonephrosis (principal); B96.20 Unspecified Escherichia coli [E. coli] as the cause of diseases classified elsewhere; F17.200 Nicotine dependence, unspecified, uncomplicated; I10 Essential (primary) hypertension; J45.909 Unspecified asthma, uncomplicated; Z87.01 Personal history of pneumonia (recurrent); Z87.440 Personal history of urinary (tract) infections; Z88.7 Allergy status to serum and vaccine; Z79.899 Other long term (current) drug therapy
CPT/HCPCS: 36415; 74177; 76000; 80048; 80053; 81001; 83735; 85025; 85610; 85730; 87077; 87081; 87088; 87186; 90732; 93005; 99285; A4618; C1758; C1769; C2617; C9113; G0378; J0696; J1100; J1170; J2001; J2250; J2270; J2405; J2704; J3010; J7120; Q9967

== ENCOUNTER 2019-08-15 12:25 | Emergency (ER) | payer MEDICAID ==
[~2019-08-15] VITALS: Ht 162.6 cm; Wt 59.1 kg
[~2019-08-15 12:25] MED LIST changes: -ALBU6.7H9 INH; +AMOX-422 PO; -OMEP40CA13 PO; -PANT20TA3 PO
[2019-08-15] MEDS ORDERED: normal saline 1000ML IV soln IV ONE (12:45)
[2019-08-15 13:15] LABS: CLARITY,URINE CLOUDY (Clear); COLOR,URINE YELLOW (Yellow); GLUCOSE, URINE NEGATIVE (Neg); KETONES,URINE NEGATIVE (Neg); LEUKOCYTE ESTERASE ,URINE SMALL (Neg); NITRITES, URINE NEGATIVE (Neg); OCCULT BLOOD,URINE LARGE (Neg); PROTEIN,URINE 100 mg/dl (Neg); UROBILINOGEN,URINE 0.2 E.U/dL (0.2-1.0)
[2019-08-15 13:19] LABS: UA COLLECTION TYPE CLN CATCH MIDSTREAM
[2019-08-15 13:21] LABS: BASOPHILS # (AUTO) 0.1 X10'3 (0-0.2); BASOPHILS % (AUTO) 1.4 % (0-1); EOSINOPHILS # (AUTO) 0.4 X10'3 (0-0.9); HEMATOCRIT 40.8 % (35.0-45.0); HEMOGLOBIN 13.2 g/dl (12.0-16.0); LYMPHOCYTES # (AUTO) 2.8 X10'3 (1.1-4.8); LYMPHOCYTES % (AUTO) 37.6 % (21-51); MEAN CORPUSCULAR HEMOGLOBIN 27.9 PG (27.0-31.0); MEAN CORPUSCULAR HGB CONC 32.5 g/dL (33.0-36.5); MEAN PLATELET VOLUME 7.5 FL (7.4-10.4); MONOCYTES # (AUTO) 0.5 X10'3 (0-0.9); MONOCYTES % (AUTO) 6.3 % (2-12); NEUTROPHILS # (AUTO) 3.8 X10'3 (1.8-7.7); NEUTROPHILS % (AUTO) 49.7 % (42-75); PLATELET COUNT 330 X10'3 (140-440); RED BLOOD COUNT 4.75 X10'6 (4.20-5.60); RED CELL DISTRIBUTION WIDTH 13.8 % (11.5-14.5); WHITE BLOOD COUNT 7.5 X10'3 (4.5-11.0)
[2019-08-15 13:22] LABS: BACTERIA,URINE FEW /HPF (Neg); MUCUS STRANDS NONE SEEN /LPF (Neg); RBC,URINE TNTC /HPF (0-2); SQUAMOUS EPITHELIAL CELL,UR FEW /LPF (FEW); TRANSITIONAL EPI CELLS,URINE FEW /HPF
[2019-08-15 13:37] LABS: ALANINE AMINOTRANSFERASE 48 U/L (12-78); ALBUMIN 3.5 G/DL (3.4-5.0); ALBUMIN/GLOBULIN RATIO 0.9 (1.1-1.5); ALKALINE PHOSPHATASE 59 IU/L (46-116); ANION GAP 5 (8-16); ASPARTATE AMINO TRANSFERASE 24 U/L (10-37); BILIRUBIN,TOTAL 0.3 MG/DL (0.1-1.0); BLOOD UREA NITROGEN 13 MG/DL (7-18); BUN/CREATININE RATIO 14.4 (6.6-38.0); CALCIUM 8.6 MG/DL (8.5-10.1); CHLORIDE 107 MMOL/L (99-107); GLUCOSE 101 MG/DL (70-104); MAGNESIUM 1.8 MG/DL (1.5-2.4); POTASSIUM 3.6 MMOL/L (3.5-5.1); SODIUM 143 MMOL/L (135-145); TOTAL CARBON DIOXIDE 30.6 MMOL/L (24-32); TOTAL PROTEIN 7.4 G/DL (6.4-8.2); eGFR 65 ML/MIN
[2019-08-15] MEDS ORDERED: phenazopyridine 100mg tablet PO ONE (13:50)
[2019-08-15] MEDS ORDERED: morphine 4 MG/ML inj SYRINge IV PRN (13:50)
[2019-08-15] MEDS ORDERED: ondansetron/PF 4mg/2ml inj IV ONE (13:50)
[2019-08-15 15:20] VITALS: BP 140/86
--- NOTE | 2019-08-15 15:25 | NUR ---
Patient ambulated to restroom on her own without any difficulty.
[2019-08-15] MEDS ORDERED: PHEN-716 PO (15:50)
[2019-08-15] MEDS ORDERED: CEPH-572 PO (15:55)
[2019-08-15] MEDS ORDERED: HYDR-4353 PO (15:58)
[2019-08-15] MEDS ORDERED: HYDROcodone/acetaminophen 10/325mg tab PO ONE (16:00)
== END 2019-08-15 16:17 | disposition home or self-care (01) ==
LOC: ER 12:25
DX: R30.0 Dysuria (principal); R11.10 Vomiting, unspecified; I10 Essential (primary) hypertension; J45.909 Unspecified asthma, uncomplicated; Z87.01 Personal history of pneumonia (recurrent); Z88.7 Allergy status to serum and vaccine
CPT/HCPCS: 36415; 74176; 80053; 81001; 83605; 83735; 84145; 85025; 87040; 87088; 96361; 96374; 96375; 99284; J2270; J2405; J7030

== ENCOUNTER 2019-08-27 22:06 | Emergency (ER) | payer MEDICAID ==
[~2019-08-27] VITALS: Ht 162.6 cm; Wt 59.0 kg
[~2019-08-27 22:06] MED LIST changes: +HYDR-4353 PO; +PHEN-716 PO
[2019-08-27 22:10] VITALS: BP 167/111
[2019-08-27 22:43] LABS: BASOPHILS # (AUTO) 0.1 X10'3 (0-0.2); BASOPHILS % (AUTO) 1.3 % (0-1); EOSINOPHILS # (AUTO) 0.5 X10'3 (0-0.9); EOSINOPHILS % (AUTO) 5.7 % (0-6); HEMATOCRIT 38.3 % (35.0-45.0); HEMOGLOBIN 12.7 g/dl (12.0-16.0); LYMPHOCYTES # (AUTO) 4.1 X10'3 (1.1-4.8); LYMPHOCYTES % (AUTO) 48.7 % (21-51); MEAN CORPUSCULAR HEMOGLOBIN 28.2 PG (27.0-31.0); MEAN CORPUSCULAR HGB CONC 33.1 g/dL (33.0-36.5); MEAN PLATELET VOLUME 7.3 FL (7.4-10.4); MONOCYTES # (AUTO) 0.7 X10'3 (0-0.9); MONOCYTES % (AUTO) 8.4 % (2-12); NEUTROPHILS % (AUTO) 35.9 % (42-75); PLATELET COUNT 337 X10'3 (140-440); RED CELL DISTRIBUTION WIDTH 13.3 % (11.5-14.5); WHITE BLOOD COUNT 8.5 X10'3 (4.5-11.0)
[2019-08-27 22:55] LABS: ALANINE AMINOTRANSFERASE 42 U/L (12-78); ALBUMIN 3.4 G/DL (3.4-5.0); ALBUMIN/GLOBULIN RATIO 0.9 (1.1-1.5); ALKALINE PHOSPHATASE 58 IU/L (46-116); ANION GAP 7 (8-16); ASPARTATE AMINO TRANSFERASE 47 U/L (10-37); BILIRUBIN,TOTAL 0.2 MG/DL (0.1-1.0); BLOOD UREA NITROGEN 20 MG/DL (7-18); BUN/CREATININE RATIO 21.3 (6.6-38.0); CALCIUM 8.3 MG/DL (8.5-10.1); CHLORIDE 103 MMOL/L (99-107); CREATININE 0.94 MG/DL (0.40-0.90); GLUCOSE 96 MG/DL (70-104); LIPASE 242 U/L (73-393); POTASSIUM 3.8 MMOL/L (3.5-5.1); SODIUM 140 MMOL/L (135-145); TOTAL CARBON DIOXIDE 29.7 MMOL/L (24-32); TOTAL PROTEIN 7.3 G/DL (6.4-8.2); eGFR 62 ML/MIN
[2019-08-27 23:16] LABS: CLARITY,URINE CLOUDY (Clear); COLOR,URINE RED (Yellow); GLUCOSE, URINE NEGATIVE (Neg); KETONES,URINE NEGATIVE (Neg); LEUKOCYTE ESTERASE ,URINE SMALL (Neg); NITRITES, URINE NEGATIVE (Neg); OCCULT BLOOD,URINE LARGE (Neg); PROTEIN,URINE 100 mg/dl (Neg); UROBILINOGEN,URINE 0.2 E.U/dL (0.2-1.0)
[2019-08-27 23:18] LABS: URINE HCG NEGATIVE (NEG)
[2019-08-27 23:24] LABS: UA COLLECTION TYPE CLN CATCH MIDSTREAM
[2019-08-27 23:33] LABS: BACTERIA,URINE NONE SEEN /HPF (Neg); RBC,URINE TNTC /HPF (0-2); WBC,URINE 0-4 /HPF (0-4)
[2019-08-27 23:34] LABS: MUCUS STRANDS MODERATE /LPF (Neg); SQUAMOUS EPITHELIAL CELL,UR FEW /LPF (FEW)
[2019-08-28] MEDS ORDERED: morphine 4 MG/ML inj SYRINge IV ONE ×2 (00:40→01:45)
[2019-08-28] MEDS ORDERED: normal saline 1000ML IV soln IVB ONE (01:00)
[2019-08-28] MEDS ORDERED: ketorolac trometh. 30mg/ml inj. IV ONE (01:00)
[2019-08-28] MEDS ORDERED: KETO10TA2 PO (01:49)
--- NOTE | 2019-08-28 02:08 | NUR ---
I called her daughter Danielle and left message to call me [phone]
--- NOTE | 2019-08-28 02:22 | NUR ---
daughter not calling back but pt states she can go home in a taxi as the door is open. taxi called. having pt wait in room in bed until they get here. it'll be about 30 min.
== END 2019-08-28 02:58 | disposition home or self-care (01) ==
LOC: ER 22:06
DX: R10.30 Lower abdominal pain, unspecified (principal); I10 Essential (primary) hypertension; J45.909 Unspecified asthma, uncomplicated; Z87.01 Personal history of pneumonia (recurrent); Z88.7 Allergy status to serum and vaccine
CPT/HCPCS: 36415; 74176; 80053; 81001; 81025; 83690; 85025; 87088; 96374; 96375; 99284; J1885; J2270; J7030

== ENCOUNTER 2019-09-03 13:03 | Emergency (ER) | payer MEDICAID ==
[~2019-09-03] VITALS: Ht 162.6 cm; Wt 60.2 kg
[~2019-09-03 13:03] MED LIST changes: -AMOX-422 PO; +KETO10TA2 PO
[2019-09-03 13:58] LABS: CLARITY,URINE CLOUDY (Clear); COLOR,URINE ORANGE (Yellow)
[2019-09-03 13:59] LABS: UA COLLECTION TYPE CLN CATCH MIDSTREAM
[2019-09-03 14:14] LABS: MUCUS STRANDS FEW /LPF (Neg); SQUAMOUS EPITHELIAL CELL,UR FEW /LPF (FEW)
[2019-09-03 14:15] LABS: RBC,URINE TNTC /HPF (0-2)
[2019-09-03 14:17] LABS: BACTERIA,URINE 2+ /HPF (Neg)
[2019-09-03] MEDS ORDERED: morphine 4 MG/ML inj SYRINge IV PRN (14:50)
[2019-09-03] MEDS ORDERED: ondansetron/PF 4mg/2ml inj IV ONE (14:50)
[2019-09-03] MEDS ORDERED: normal saline 1000ml 1,000 ML IV ONE (14:50)
[2019-09-03] MEDS ORDERED: ketorolac tromethamine 15mg/ml inj. IV ONE (14:55)
[2019-09-03] MEDS ORDERED: ketorolac trometh. 30mg/ml inj. IV ONE (15:00)
[2019-09-03 15:30] LABS: BASOPHILS % (AUTO) 0.2 % (0-1); EOSINOPHILS # (AUTO) 0.5 X10'3 (0-0.9); EOSINOPHILS % (AUTO) 5.9 % (0-6); HEMATOCRIT 39.2 % (35.0-45.0); MEAN CORPUSCULAR HEMOGLOBIN 28.6 PG (27.0-31.0); MEAN CORPUSCULAR HGB CONC 33.1 g/dL (33.0-36.5); MEAN CORPUSCULAR VOLUME 86.4 FL (78-98); MEAN PLATELET VOLUME 7.6 FL (7.4-10.4); MONOCYTES # (AUTO) 0.6 X10'3 (0-0.9); NEUTROPHILS # (AUTO) 4.9 X10'3 (1.8-7.7); NEUTROPHILS % (AUTO) 53.9 % (42-75); PLATELET COUNT 277 X10'3 (140-440); RED BLOOD COUNT 4.53 X10'6 (4.20-5.60); RED CELL DISTRIBUTION WIDTH 13.7 % (11.5-14.5); WHITE BLOOD COUNT 9.1 X10'3 (4.5-11.0)
[2019-09-03 15:46] LABS: ALANINE AMINOTRANSFERASE 30 U/L (12-78); ALBUMIN 3.4 G/DL (3.4-5.0); ALBUMIN/GLOBULIN RATIO 0.9 (1.1-1.5); ALKALINE PHOSPHATASE 53 IU/L (46-116); ANION GAP 4 (8-16); ASPARTATE AMINO TRANSFERASE 18 U/L (10-37); BILIRUBIN,TOTAL 0.3 MG/DL (0.1-1.0); BLOOD UREA NITROGEN 26 MG/DL (7-18); BUN/CREATININE RATIO 23.6 (6.6-38.0); CALCIUM 8.1 MG/DL (8.5-10.1); CHLORIDE 107 MMOL/L (99-107); GLUCOSE 76 MG/DL (70-104); SODIUM 141 MMOL/L (135-145); TOTAL CARBON DIOXIDE 29.8 MMOL/L (24-32); TOTAL PROTEIN 7.1 G/DL (6.4-8.2); eGFR 52 ML/MIN
[2019-09-03 16:08] VITALS: BP 168/69
[2019-09-03] MEDS ORDERED: HYDR-3965 PO (16:13)
== END 2019-09-03 16:20 | disposition home or self-care (01) ==
LOC: ER 13:03
DX: R10.30 Lower abdominal pain, unspecified (principal); R30.0 Dysuria; I10 Essential (primary) hypertension; J45.909 Unspecified asthma, uncomplicated; Z72.89 Other problems related to lifestyle; Z88.7 Allergy status to serum and vaccine; Z79.899 Other long term (current) drug therapy
CPT/HCPCS: 36415; 80053; 81001; 83605; 84145; 85025; 87040; 87088; 96374; 96375; 99284; J1885; J2270; J2405; J7030

== ENCOUNTER 2019-09-07 03:40 | Emergency (ER) | payer MEDICAID ==
[~2019-09-07] VITALS: Ht 162.6 cm; Wt 60.5 kg
[~2019-09-07 03:40] MED LIST changes: +HYDR-3965 PO
[2019-09-07] MEDS ORDERED: normal saline 1000ml 1,000 ML IV ONE (04:00)
[2019-09-07] MEDS ORDERED: LORazepam 2 mg/ml vial IV ONE (04:00)
[2019-09-07] MEDS ORDERED: ketorolac trometh. 30mg/ml inj. IV ONE (04:00)
[2019-09-07] MEDS ORDERED: glucagon, human recombinant 1mg kit IV ONE (04:00)
[2019-09-07] MEDS ORDERED: ondansetron/PF 4mg/2ml inj IV ONE (04:00)
--- NOTE | 2019-09-07 04:57 | NUR ---
Patient resting comfortably on gurney now.
--- NOTE | 2019-09-07 05:58 | NUR ---
MD with patient, GI lab will be called for foreign body.
--- NOTE | 2019-09-07 06:15 | NUR ---
Patient left to GI lab
[2019-09-07 06:18] VITALS: BP 141/93
[2019-09-07] MEDS ORDERED: fentaNYL/PF 50MCG/1 ML 2ML syringe ONE (06:21)
[2019-09-07] MEDS ORDERED: MIDAZolam 5mg/5ml vial ONE (06:21)
[2019-09-07] MEDS ORDERED: LIDOcaine Viscous 15ml cup ONE (06:21)
[2019-09-07 07:14] VITALS: BP 173/108
[2019-09-07 07:19] VITALS: BP 157/87
[2019-09-07 07:28] VITALS: BP 141/90
[2019-09-07 07:38] VITALS: BP 144/86
[2019-09-07 07:48] VITALS: BP 148/85
[2019-09-07] MEDS ORDERED: PANT-47 PO (08:31)
--- NOTE | 2019-09-07 10:00 | NUR ---
PATIENTEASILY AWAKENS NOW. GAG REFLEX PRESENT. PATIENT TOLERATED SIPS OF WATER WITHOUT REGURGE OR CHOKING. READY FOR DC.
--- NOTE | 2019-09-07 10:05 | NUR ---
ATTEMPTED TO GET RIDE HOME FROM FAMILY OR NEIGHBOR. UNABLE TO CONTACT RIDE. [employer] WILL BE CALLED FOR PATIENT TRANSPORTATION HOME.
== END 2019-09-07 10:19 | disposition home or self-care (01) ==
LOC: ER 03:41
DX: T18.128A Food in esophagus causing other injury, initial encounter (principal); I10 Essential (primary) hypertension; J45.909 Unspecified asthma, uncomplicated; Z88.7 Allergy status to serum and vaccine; Z87.01 Personal history of pneumonia (recurrent); Z87.440 Personal history of urinary (tract) infections; Z79.899 Other long term (current) drug therapy; Y92.89 Other specified places as the place of occurrence of the external cause; Y93.89 Activity, other specified; Y99.8 Other external cause status
CPT/HCPCS: 43247; 96374; 96375; 99152; 99285; C1773; J1610; J1885; J2060; J2250; J2405; J3010; J7030; J7040; 99284; A4620

== ENCOUNTER 2019-09-14 21:56 | Emergency (ER) | payer MEDICAID ==
[~2019-09-14] VITALS: Ht 162.6 cm; Wt 60.0 kg
[~2019-09-14 21:56] MED LIST changes: -HYDR-3965 PO; +PANT-47 PO
[2019-09-14 23:01] LABS: CLARITY,URINE CLOUDY (Clear); GLUCOSE, URINE NEGATIVE (Neg); KETONES,URINE NEGATIVE (Neg); LEUKOCYTE ESTERASE ,URINE TRACE (Neg); NITRITES, URINE NEGATIVE (Neg); OCCULT BLOOD,URINE LARGE (Neg); PH,URINE 6.5 (4.8-8.0); PROTEIN,URINE >=300 mg/dl (Neg); UROBILINOGEN,URINE 0.2 E.U/dL (0.2-1.0)
[2019-09-14 23:04] LABS: UA COLLECTION TYPE CLN CATCH MIDSTREAM
[2019-09-14 23:05] LABS: COLOR,URINE PINK (Yellow)
[2019-09-14 23:17] LABS: BACTERIA,URINE NONE SEEN /HPF (Neg); RBC,URINE TNTC /HPF (0-2); SQUAMOUS EPITHELIAL CELL,UR FEW /LPF (FEW)
[2019-09-14] MEDS ORDERED: phenazopyridine 100mg tablet PO ONE (23:55)
[2019-09-15] MEDS ORDERED: ketorolac tromethamine 15mg/ml inj. IV ONE (00:15)
[2019-09-15] MEDS ORDERED: ondansetron/PF 4mg/2ml inj IV ONE (00:15)
[2019-09-15] MEDS ORDERED: LIDOcaine 2 gm/250ml D5W 250 ML IV ONE (00:20)
[2019-09-15 00:58] LABS: BASOPHILS # (AUTO) 0.1 X10'3 (0-0.2); BASOPHILS % (AUTO) 1.1 % (0-1); EOSINOPHILS # (AUTO) 0.4 X10'3 (0-0.9); EOSINOPHILS % (AUTO) 4.6 % (0-6); HEMATOCRIT 35.1 % (35.0-45.0); HEMOGLOBIN 11.7 g/dl (12.0-16.0); LYMPHOCYTES # (AUTO) 3.7 X10'3 (1.1-4.8); LYMPHOCYTES % (AUTO) 40.2 % (21-51); MEAN CORPUSCULAR HEMOGLOBIN 28.8 PG (27.0-31.0); MEAN CORPUSCULAR HGB CONC 33.2 g/dL (33.0-36.5); MEAN CORPUSCULAR VOLUME 86.8 FL (78-98); MEAN PLATELET VOLUME 7.4 FL (7.4-10.4); MONOCYTES # (AUTO) 0.8 X10'3 (0-0.9); MONOCYTES % (AUTO) 8.4 % (2-12); NEUTROPHILS # (AUTO) 4.3 X10'3 (1.8-7.7); NEUTROPHILS % (AUTO) 45.7 % (42-75); PLATELET COUNT 321 X10'3 (140-440); RED BLOOD COUNT 4.05 X10'6 (4.20-5.60); RED CELL DISTRIBUTION WIDTH 13.8 % (11.5-14.5); WHITE BLOOD COUNT 9.3 X10'3 (4.5-11.0)
[2019-09-15 01:08] LABS: ANION GAP 6 (8-16); BILIRUBIN,TOTAL 0.3 MG/DL (0.1-1.0); BLOOD UREA NITROGEN 12 MG/DL (7-18); BUN/CREATININE RATIO 14.3 (6.6-38.0); CALCIUM 8.7 MG/DL (8.5-10.1); CHLORIDE 106 MMOL/L (99-107); CREATININE 0.84 MG/DL (0.40-0.90); GLUCOSE 99 MG/DL (70-104); POTASSIUM 3.5 MMOL/L (3.5-5.1); SODIUM 143 MMOL/L (135-145); TOTAL CARBON DIOXIDE 30.7 MMOL/L (24-32); TOTAL PROTEIN 6.8 G/DL (6.4-8.2); eGFR 70 ML/MIN
[2019-09-15 01:09] LABS: ALANINE AMINOTRANSFERASE 25 U/L (12-78); ALBUMIN 3.2 G/DL (3.4-5.0); ALBUMIN/GLOBULIN RATIO 0.9 (1.1-1.5); ALKALINE PHOSPHATASE 44 IU/L (46-116); ASPARTATE AMINO TRANSFERASE 18 U/L (10-37)
[2019-09-15] MEDS ORDERED: NORMAL SALINE IV ONE (01:20)
[2019-09-15] MEDS ORDERED: LIDOCAINE 1% IV ONE (01:20)
[2019-09-15 01:30] LABS: TROPONIN I < 0.04 NG/ML (0.0-0.05)
[2019-09-15] MEDS ORDERED: OXYB5TAB16 PO (02:07)
[2019-09-15] MEDS ORDERED: PHEN-824 PO (02:07)
[2019-09-15] MEDS ORDERED: FLO0.4C PO (02:07)
[2019-09-15] MEDS ORDERED: KETO10TA2 PO (02:07)
[2019-09-15] MEDS ORDERED: ONDA4TAB6 PO (02:07)
[2019-09-15] MEDS ORDERED: DIAZ5TAB PO (02:07)
[2019-09-15 02:28] VITALS: BP 128/94
== END 2019-09-15 02:33 | disposition home or self-care (01) ==
LOC: ER 21:57
DX: R10.32 Left lower quadrant pain (principal); G89.29 Other chronic pain; I10 Essential (primary) hypertension; J45.909 Unspecified asthma, uncomplicated; Z96.0 Presence of urogenital implants; Z87.448 Personal history of other diseases of urinary system; Z87.01 Personal history of pneumonia (recurrent); Z79.899 Other long term (current) drug therapy; Z88.7 Allergy status to serum and vaccine
CPT/HCPCS: 36415; 80053; 81001; 84484; 85025; 87088; 96374; 96375; 99284; J1885; J2001; J2405; 96365

== ENCOUNTER 2019-09-26 17:15 | Emergency (ER) | payer MEDICAID ==
[~2019-09-26] VITALS: Ht 162.6 cm; Wt 60.5 kg
[~2019-09-26 17:15] MED LIST changes: +DIAZ5TAB PO; -HYDR-4353 PO; -KETO10TA2 PO; -PANT-47 PO; -PHEN-716 PO; +PHEN-824 PO
[2019-09-26 18:44] LABS: BASOPHILS # (AUTO) 0.1 X10'3 (0-0.2); BASOPHILS % (AUTO) 1.3 % (0-1); EOSINOPHILS # (AUTO) 0.4 X10'3 (0-0.9); EOSINOPHILS % (AUTO) 4.9 % (0-6); HEMATOCRIT 37.8 % (35.0-45.0); HEMOGLOBIN 12.3 g/dl (12.0-16.0); LYMPHOCYTES # (AUTO) 3.5 X10'3 (1.1-4.8); LYMPHOCYTES % (AUTO) 40.7 % (21-51); MEAN CORPUSCULAR HEMOGLOBIN 28.3 PG (27.0-31.0); MEAN CORPUSCULAR HGB CONC 32.6 g/dL (33.0-36.5); MEAN CORPUSCULAR VOLUME 86.6 FL (78-98); MEAN PLATELET VOLUME 7.7 FL (7.4-10.4); MONOCYTES # (AUTO) 0.6 X10'3 (0-0.9); NEUTROPHILS % (AUTO) 46.1 % (42-75); PLATELET COUNT 339 X10'3 (140-440); RED BLOOD COUNT 4.36 X10'6 (4.20-5.60); RED CELL DISTRIBUTION WIDTH 13.9 % (11.5-14.5); WHITE BLOOD COUNT 8.6 X10'3 (4.5-11.0)
[2019-09-26 18:53] LABS: ALANINE AMINOTRANSFERASE 37 U/L (12-78); ALBUMIN 3.2 G/DL (3.4-5.0); ALBUMIN/GLOBULIN RATIO 0.8 (1.1-1.5); ALKALINE PHOSPHATASE 48 IU/L (46-116); ANION GAP 7 (8-16); BILIRUBIN,TOTAL 0.1 MG/DL (0.1-1.0); BLOOD UREA NITROGEN 19 MG/DL (7-18); BUN/CREATININE RATIO 20.2 (6.6-38.0); CALCIUM 8.4 MG/DL (8.5-10.1); CHLORIDE 105 MMOL/L (99-107); CREATININE 0.94 MG/DL (0.40-0.90); GLUCOSE 80 MG/DL (70-104); SODIUM 143 MMOL/L (135-145); TOTAL CARBON DIOXIDE 30.9 MMOL/L (24-32); TOTAL PROTEIN 7.1 G/DL (6.4-8.2); eGFR 62 ML/MIN
[2019-09-26 18:55] LABS: ASPARTATE AMINO TRANSFERASE 32 U/L (10-37); POTASSIUM 3.7 MMOL/L (3.5-5.1)
[2019-09-26] MEDS ORDERED: ondansetron 4mg rapidly disintigrating tab PO ONE (20:15)
[2019-09-26] MEDS ORDERED: morphine 4 MG/ML inj SYRINge IM ONE (20:15)
[2019-09-26 21:02] LABS: CLARITY,URINE CLOUDY (Clear); COLOR,URINE YELLOW (Yellow); GLUCOSE, URINE NEGATIVE (Neg); KETONES,URINE NEGATIVE (Neg); LEUKOCYTE ESTERASE ,URINE TRACE (Neg); NITRITES, URINE NEGATIVE (Neg); OCCULT BLOOD,URINE LARGE (Neg); PROTEIN,URINE 100 mg/dl (Neg); UA COLLECTION TYPE CLN CATCH MIDSTREAM; UROBILINOGEN,URINE 0.2 E.U/dL (0.2-1.0)
[2019-09-26 21:24] LABS: MUCUS STRANDS FEW /LPF (Neg); SQUAMOUS EPITHELIAL CELL,UR MODERATE /LPF (FEW)
[2019-09-26 21:25] LABS: BACTERIA,URINE 1+ /HPF (Neg)
[2019-09-26 21:26] LABS: RBC,URINE TNTC /HPF (0-2)
[2019-09-26] MEDS ORDERED: CEPH500C5 PO (21:30)
[2019-09-26] MEDS ORDERED: TRAM50TA2 PO (21:30)
[2019-09-26 21:54] VITALS: BP 164/99
== END 2019-09-26 21:55 | disposition home or self-care (01) ==
LOC: ER 17:16
DX: R07.89 Other chest pain (principal); N39.0 Urinary tract infection, site not specified; I10 Essential (primary) hypertension; J45.909 Unspecified asthma, uncomplicated; F17.200 Nicotine dependence, unspecified, uncomplicated; Z96.0 Presence of urogenital implants; Z98.890 Other specified postprocedural states; Z87.01 Personal history of pneumonia (recurrent); Z88.7 Allergy status to serum and vaccine; Z79.899 Other long term (current) drug therapy
CPT/HCPCS: 36415; 71045; 80053; 81001; 84484; 85025; 87088; 93005; 96372; 99285; J2270

== ENCOUNTER 2019-10-01 05:08 | Inpatient (IN) | payer MEDICAID ==
[2019-09-22 16:27] LABS: BASOPHILS # (AUTO) 0.1 X10'3 (0-0.2); BASOPHILS % (AUTO) 1.2 % (0-1); EOSINOPHILS # (AUTO) 0.4 X10'3 (0-0.9); LYMPHOCYTES # (AUTO) 3.1 X10'3 (1.1-4.8); LYMPHOCYTES % (AUTO) 35.8 % (21-51); MEAN CORPUSCULAR HEMOGLOBIN 28.1 PG (27.0-31.0); MEAN CORPUSCULAR HGB CONC 32.7 g/dL (33.0-36.5); MEAN PLATELET VOLUME 7.5 FL (7.4-10.4); MONOCYTES # (AUTO) 0.6 X10'3 (0-0.9); MONOCYTES % (AUTO) 7.4 % (2-12); NEUTROPHILS # (AUTO) 4.3 X10'3 (1.8-7.7); NEUTROPHILS % (AUTO) 50.6 % (42-75); PRE OP HEMATOCRIT 37.1 % (35.0-45.0); PRE OP HEMOGLOBIN 12.1 g/dL (12.0-16.0); PRE OP PLATELET COUNT 333 X10'3 (140-440); RED BLOOD COUNT 4.32 X10'6 (4.20-5.60); RED CELL DISTRIBUTION WIDTH 13.7 % (11.5-14.5)
[2019-09-22 16:49] LABS: ALBUMIN 3.7 G/DL (3.4-5.0); ALKALINE PHOSPHATASE 49 IU/L (46-116); BLOOD UREA NITROGEN 14 MG/DL (7-18); BUN/CREATININE RATIO 13.7 (6.6-38.0); CHLORIDE 109 MMOL/L (99-107); CREATININE 1.02 MG/DL (0.40-0.90); PRE OP ALT 32 U/L (30-65); PRE OP ANION GAP 4 (8-16); PRE OP AST 21 U/L (10-37); PRE OP BILIRUB, TOTAL 0.2 MG/DL (0.0-1.0); PRE OP GLUCOSE 104 MG/DL (70-104); PRE OP POTASSIUM 3.7 MMOL/L (3.4-5.1); PRE OP SODIUM 145 MMOL/L (135-145); TOTAL PROTEIN 7.4 G/DL (6.4-8.2); eGFR 56 ML/MIN
[2019-10-01] VITALS (18 sets, daily range): BP systolic 135–181; BP diastolic 81–104
[~2019-10-01] VITALS: Ht 162.6 cm; Wt 58.5 kg
[~2019-10-01 05:08] MED LIST changes: +CEPH500C5 PO; +TRAM50TA2 PO
[2019-10-01] MEDS ORDERED: cefazolin/dext.iso 2gm/100ml 100 ML IV ONE (05:30)
[2019-10-01] MEDS ORDERED: famotidine 20mg tablet PO ONE (05:30)
[2019-10-01] MEDS ORDERED: albuterol 2.5 MG/3 ML nebule NEB ONE (05:30)
[2019-10-01] MEDS ORDERED: VAL5T PO (06:01)
[2019-10-01] MEDS ORDERED: PHEN-824 PO (06:01)
[2019-10-01] MEDS ORDERED: LIDOcaine 1% (10mg/ml) 2ml vial ONE ×2 (06:17→07:14)
[2019-10-01] MEDS: ringers solution, lacted 1,000 ML IV SCH ×2 (06:24→12:14)
[2019-10-01] MEDS ORDERED: midazolam 2 mg/2 ml injection ONE (07:16)
[2019-10-01] MEDS ORDERED: fentaNYL /PF 50mcg/ml 5ml ampule ONE (07:16)
[2019-10-01] MEDS ORDERED: propofol inj 20 ML IV ONE (07:17)
[2019-10-01] MEDS ORDERED: LIDOcaine 2% (20mg/ml) 5ml vial ONE (07:17)
[2019-10-01] MEDS ORDERED: dexamethasone sod phosphate 4mg/ml inj. ONE (07:17)
[2019-10-01] MEDS ORDERED: ondansetron/PF 4mg/2ml inj ONE (07:18)
[2019-10-01] MEDS ORDERED: rocuronium 10mg/ml inj IV ONE (07:18)
[2019-10-01] MEDS ORDERED: ringers solution, lacted 1,000 ML IV SCH (07:22)
[2019-10-01] MEDS ORDERED: morphine 4 MG/ML inj SYRINge IV PRN (07:25)
[2019-10-01] MEDS ORDERED: proCHLORperazine 10 MG/2 ml inj IV PRN (07:25)
[2019-10-01] MEDS ORDERED: ondansetron/PF 4mg/2ml inj IV PRN ×2 (07:25→11:10)
[2019-10-01] MEDS ORDERED: meperidine/PF 25mg/ml syringe IV PRN ×3 (07:25)
[2019-10-01] MEDS ORDERED: morphine 2 MG/ML inj. syringe IV PRN (07:25)
[2019-10-01] MEDS ORDERED: morphine 10mg/ml inj. ONE (10:04)
[2019-10-01] MEDS ORDERED: acetaminophen 1,000mg/100ml IV 100 ML IV ONE (10:40)
--- NOTE | 2019-10-01 10:54 | NUR ---
Received from OR via SURGICAL BED , accompanied by Anesthesiologist GABRIELE and report given by Anesthesiolgist. PATIENT WITH ART LINE AND 20G PIV IN RIGHT UE RUNNING LR AT 100. SCDS DONNED. 3 ABDOMINAL BANDAIDS AND A DELVIS TO LEFT SIDE OF ABDOMEN. VSS AT THIS TIME. Addendum: 10/01/19 at 1109 by Alexi Shore RN, RN Amended: Links added.
[2019-10-01] MEDS ORDERED: HYDROcodone/acetaminophen 10/325mg tab PO PRN ×2 (11:10)
[2019-10-01] MEDS ORDERED: labetalol 20mg/4ml (5mg/ml) syringe IV ONE (11:25)
[2019-10-01] MEDS ORDERED: labetalol 20mg/4ml (5mg/ml) syringe IV PRN (11:25)
--- NOTE | 2019-10-01 11:45 | NUR ---
Received report from APPLE PEELER OPERATORAlexi.
--- NOTE | 2019-10-01 12:04 | NUR ---
ALL CRITERIA FOR TRANSFER TO THE FLOOR HAS BEEN ACHIEVED. VSS. BED LOW, CALL LIGHT AND VS. SET IN PLACE. RN PRESENT TO ACCEPT CARE. PATIENT RESTING COMFORTABLY IN BED. BELONGINGS SENT WITH PATIENT. DRESSINGS CDI. PATIENT WITH DELVIS INTACT. URINE IN CRUZ CATHETER STILL SLIGHT PINK IN COLOR. VSS. Addendum: 10/01/19 at 1215 by Alexi Shore RN, RN Amended: Links added.
--- NOTE | 2019-10-01 18:50 | NUR ---
Problems reprioritized. Patient report given, questions answered & plan of care reviewed with Naida RN.
[2019-10-02] VITALS: BP 121/70
[2019-10-02 04:30] VITALS: BP 154/84
[2019-10-02] MEDS: diazepam 5mg tablet PO PRN (05:10)
[2019-10-02 06:22] LABS: BASOPHILS # (AUTO) 0.1 X10'3 (0-0.2); BASOPHILS % (AUTO) 0.8 % (0-1); EOSINOPHILS # (AUTO) 0.1 X10'3 (0-0.9); HEMATOCRIT 37.3 % (35.0-45.0); HEMOGLOBIN 12.1 g/dl (12.0-16.0); LYMPHOCYTES # (AUTO) 3.2 X10'3 (1.1-4.8); LYMPHOCYTES % (AUTO) 36.9 % (21-51); MEAN CORPUSCULAR HGB CONC 32.5 g/dL (33.0-36.5); MEAN CORPUSCULAR VOLUME 86.2 FL (78-98); MEAN PLATELET VOLUME 7.8 FL (7.4-10.4); MONOCYTES # (AUTO) 0.6 X10'3 (0-0.9); MONOCYTES % (AUTO) 7.1 % (2-12); NEUTROPHILS # (AUTO) 4.8 X10'3 (1.8-7.7); NEUTROPHILS % (AUTO) 54.2 % (42-75); PLATELET COUNT 292 X10'3 (140-440); RED BLOOD COUNT 4.33 X10'6 (4.20-5.60); WHITE BLOOD COUNT 8.8 X10'3 (4.5-11.0)
[2019-10-02 06:30] VITALS: BP 144/78
[2019-10-02 06:33] LABS: ALBUMIN 2.8 G/DL (3.4-5.0); ANION GAP 7 (8-16); BLOOD UREA NITROGEN 10 MG/DL (7-18); BUN/CREATININE RATIO 10.8 (6.6-38.0); CALCIUM 8.2 MG/DL (8.5-10.1); CHLORIDE 106 MMOL/L (99-107); CREATININE 0.93 MG/DL (0.40-0.90); GLUCOSE 119 MG/DL (70-104); POTASSIUM 3.7 MMOL/L (3.5-5.1); SODIUM 142 MMOL/L (135-145); TOTAL CARBON DIOXIDE 29.3 MMOL/L (24-32); eGFR 63 ML/MIN
--- NOTE | 2019-10-02 06:50 | NUR ---
Patient in room REJI 356. I have received report from JUN Pascal and had the opportunity to ask questions and assume patient care.
[2019-10-02] MEDS: HYDROmorphone inj. 0.5 MG/0.5 ML DISP.SYRIN IV PRN ×4 (07:52→21:48)
[2019-10-02 11:00] VITALS: BP 129/74
[2019-10-02] MEDS: ringers solution, lacted 1,000 ML IV SCH (13:14)
[2019-10-02 18:00] VITALS: BP 145/97
--- NOTE | 2019-10-02 18:40 | NUR ---
Problems reprioritized. Patient report given, questions answered & plan of care reviewed with JUN Monahan.
--- NOTE | 2019-10-02 18:40 | NUR ---
Patient in room REJI 356B. I have received report from JUN Borges and had the opportunity to ask questions and assume patient care.
[2019-10-02] MEDS: HYDROcodone/acetaminophen 10/325mg tab PO PRN (19:05)
[2019-10-02] MEDS ORDERED: Melatonin 3mg tablet PO PRN (22:20)
[2019-10-03] VITALS: BP 158/87
[2019-10-03] MEDS: HYDROcodone/acetaminophen 10/325mg tab PO PRN ×5 (00:15→23:06)
[2019-10-03] MEDS: HYDROmorphone inj. 0.5 MG/0.5 ML DISP.SYRIN IV PRN ×2 (02:13→09:35)
[2019-10-03] MEDS: diazepam 5mg tablet PO PRN ×3 (02:23→23:06)
[2019-10-03 06:06] LABS: BASOPHILS # (AUTO) 0.1 X10'3 (0-0.2); BASOPHILS % (AUTO) 0.7 % (0-1); EOSINOPHILS # (AUTO) 0.3 X10'3 (0-0.9); EOSINOPHILS % (AUTO) 3.1 % (0-6); HEMATOCRIT 37.7 % (35.0-45.0); HEMOGLOBIN 12.1 g/dl (12.0-16.0); LYMPHOCYTES # (AUTO) 2.7 X10'3 (1.1-4.8); MEAN CORPUSCULAR HEMOGLOBIN 28.2 PG (27.0-31.0); MEAN CORPUSCULAR HGB CONC 32.2 g/dL (33.0-36.5); MEAN CORPUSCULAR VOLUME 87.7 FL (78-98); MEAN PLATELET VOLUME 8.3 FL (7.4-10.4); MONOCYTES # (AUTO) 0.7 X10'3 (0-0.9); MONOCYTES % (AUTO) 8.1 % (2-12); NEUTROPHILS % (AUTO) 57.1 % (42-75); PLATELET COUNT 240 X10'3 (140-440); RED CELL DISTRIBUTION WIDTH 14.4 % (11.5-14.5); WHITE BLOOD COUNT 8.7 X10'3 (4.5-11.0)
--- NOTE | 2019-10-03 06:20 | NUR ---
Patient in room REJI 356. I have received report from JUN Monahan and had the opportunity to ask questions and assume patient care.
--- NOTE | 2019-10-03 06:21 | NUR ---
Problems reprioritized. Patient report given, questions answered & plan of care reviewed with Katerina. Patient stable at shift change
[2019-10-03 06:30] VITALS: BP 137/82
[2019-10-03 06:39] LABS: ALBUMIN 2.5 G/DL (3.4-5.0); ANION GAP 11 (8-16); BLOOD UREA NITROGEN 10 MG/DL (7-18); CALCIUM 7.9 MG/DL (8.5-10.1); CHLORIDE 107 MMOL/L (99-107); CREATININE 0.77 MG/DL (0.40-0.90); GLUCOSE 97 MG/DL (70-104); SODIUM 139 MMOL/L (135-145); TOTAL CARBON DIOXIDE 21.4 MMOL/L (24-32); eGFR 78 ML/MIN
[2019-10-03 06:40] LABS: POTASSIUM 4.3 MMOL/L (3.5-5.1)
[2019-10-03] MEDS: docusate sod 250mg capsule PO SCH (09:34)
[2019-10-03 11:00] VITALS: BP 154/92
--- NOTE | 2019-10-03 18:05 | NUR ---
Problems reprioritized. Patient report given, questions answered & plan of care reviewed with JUN Morales.
[2019-10-03 20:00] VITALS: BP 158/98
[2019-10-04] VITALS: BP 142/91
[2019-10-04] MEDS: HYDROcodone/acetaminophen 10/325mg tab PO PRN (03:36)
--- NOTE | 2019-10-04 06:00 | NUR ---
Patient in room REJI 356. I have received report from JUN Morales and had the opportunity to ask questions and assume patient care.
[2019-10-04 07:13] VITALS: BP 139/95
[2019-10-04] MEDS ORDERED: oxyCODONE/APAP 5-325mg tablet PO PRN (08:35)
[2019-10-04] MEDS: sodium bicarbonate (8.4%) inj. 50 MEQ in dextrose 5%-water 1,000 ML IV SCH ×3 (09:48→20:31)
[2019-10-04] MEDS: docusate sod 250mg capsule PO SCH (09:48)
[2019-10-04] MEDS: oxyCODONE/APAP 5-325mg tablet PO PRN ×3 (09:50→20:34)
[2019-10-04 11:00] VITALS: BP 128/85
[2019-10-04] MEDS: diazepam 5mg tablet PO PRN ×3 (11:00→23:22)
--- NOTE | 2019-10-04 11:11 | NUR ---
D/C glover per MD order, pt tolerated well, removed saturated serous-sangineous dressing around DELVIS drain LL quadrant, replaced with non-stick optifoam and used foam tape to adhere.
--- NOTE | 2019-10-04 16:52 | NUR ---
Bladder scanned found 0 post void residual, patient states missed hat.
--- NOTE | 2019-10-04 18:12 | NUR ---
Patient in room REJI 356. I have received report from Marcelino BARAHONA and had the opportunity to ask questions and assume patient care.
--- NOTE | 2019-10-04 18:30 | NUR ---
Problems reprioritized. Patient report given, questions answered & plan of care reviewed with JUN Garcia.
[2019-10-04 19:00] VITALS: BP 160/103
[2019-10-05] VITALS: BP 150/96
[2019-10-05] MEDS: oxyCODONE/APAP 5-325mg tablet PO PRN ×2 (05:04→11:12)
--- NOTE | 2019-10-05 06:08 | NUR ---
Problems reprioritized. Patient report given, questions answered & plan of care reviewed with Shayy BARAHONA.
[2019-10-05 06:20] LABS: ALBUMIN 2.6 G/DL (3.4-5.0); ANION GAP 3 (8-16); BLOOD UREA NITROGEN 19 MG/DL (7-18); BUN/CREATININE RATIO 18.8 (6.6-38.0); CALCIUM 8.5 MG/DL (8.5-10.1); CHLORIDE 99 MMOL/L (99-107); CREATININE 1.01 MG/DL (0.40-0.90); GLUCOSE 232 MG/DL (70-104); POTASSIUM 4.2 MMOL/L (3.5-5.1); SODIUM 137 MMOL/L (135-145); TOTAL CARBON DIOXIDE 34.8 MMOL/L (24-32); eGFR 57 ML/MIN
[2019-10-05 06:44] LABS: BASOPHILS # (AUTO) 0.1 X10'3 (0-0.2); EOSINOPHILS # (AUTO) 0.3 X10'3 (0-0.9); EOSINOPHILS % (AUTO) 4.3 % (0-6); HEMATOCRIT 36.5 % (35.0-45.0); HEMOGLOBIN 11.8 g/dl (12.0-16.0); LYMPHOCYTES # (AUTO) 2.4 X10'3 (1.1-4.8); LYMPHOCYTES % (AUTO) 31.2 % (21-51); MEAN CORPUSCULAR HEMOGLOBIN 27.9 PG (27.0-31.0); MEAN CORPUSCULAR HGB CONC 32.4 g/dL (33.0-36.5); MEAN CORPUSCULAR VOLUME 86.1 FL (78-98); MEAN PLATELET VOLUME 7.5 FL (7.4-10.4); MONOCYTES # (AUTO) 0.7 X10'3 (0-0.9); MONOCYTES % (AUTO) 8.8 % (2-12); NEUTROPHILS # (AUTO) 4.1 X10'3 (1.8-7.7); NEUTROPHILS % (AUTO) 54.7 % (42-75); PLATELET COUNT 263 X10'3 (140-440); RED BLOOD COUNT 4.24 X10'6 (4.20-5.60); WHITE BLOOD COUNT 7.6 X10'3 (4.5-11.0)
[2019-10-05] MEDS ORDERED: OXYC-145 PO (07:40)
[2019-10-05] MEDS ORDERED: DOCU-148 PO (07:40)
--- NOTE | 2019-10-05 07:43 | NUR ---
Patient's docusate 250mg order states do not give this dose until patient has had BM. Patient reports she has not had bm. Order clarified with Dr. Stern which he states " to please give her that dose. She has not had a BM since being here." Will administer colace 250mg PO.
[2019-10-05] MEDS: docusate sod 250mg capsule PO SCH (07:47)
[2019-10-05] MEDS ORDERED: CEPH-572 PO (07:48)
[2019-10-05 07:50] VITALS: BP 125/89
[2019-10-05 13:04] VITALS: BP 129/73
--- NOTE | 2019-10-05 15:41 | NUR ---
Patient discharged home with daughter stable and appropriate. IV removed. All belongings taken from room. New prescriptions e-scripted to seamus, aydenocet rx given to patient. Patient discharged with the DELVIS drain intact per Dr Edge request. Education given and demonstrated for patient and she stated that she understands. Patient will follow up with dr edge and call his office to schedule appointment.
== END 2019-10-05 15:45 | disposition home or self-care (01) | DRG 443 ==
LOC: PAS 05:08 → EDSTATUS 07:30 → SUR 3N 11:07
PROVIDERS: ADMIT Urology; ATTEND Urology
PROC: 8E0W4CZ Robotic Assisted Procedure of Trunk Region, Percutaneous Endoscopic Approach (ICD-10-PCS; 2019-10-01)
PROC: 0TQ44ZZ Repair Left Kidney Pelvis, Percutaneous Endoscopic Approach (ICD-10-PCS; principal; 2019-10-01 07:27)
DX: N13.0 Hydronephrosis with ureteropelvic junction obstruction (principal); B19.20 Unspecified viral hepatitis C without hepatic coma; I10 Essential (primary) hypertension; J44.9 Chronic obstructive pulmonary disease, unspecified; Z96.0 Presence of urogenital implants
CPT/HCPCS: 36415; 71046; 80048; 80053; 82570; 82948; 85025; 85610; 85730; 86885; 86900; 86901; 93005; A4215; A4618; A7000; C1758; C1769; C2617; G0378; J0131; J1100; J1170; J2001; J2250; J2270; J2405; J2704; J3010; J3490; J7030; J7040; J7120

== ENCOUNTER 2019-12-10 10:06 | Day surgery (SDC) | payer MEDICAID ==
[2019-12-03 15:17] LABS: BASOPHILS # (AUTO) 0.1 X10'3 (0-0.2); BASOPHILS % (AUTO) 1.2 % (0-1); EOSINOPHILS # (AUTO) 0.4 X10'3 (0-0.9); EOSINOPHILS % (AUTO) 5.4 % (0-6); LYMPHOCYTES # (AUTO) 3.1 X10'3 (1.1-4.8); LYMPHOCYTES % (AUTO) 41.2 % (21-51); MEAN CORPUSCULAR HEMOGLOBIN 28.4 PG (27.0-31.0); MEAN CORPUSCULAR HGB CONC 32.8 g/dL (33.0-36.5); MEAN CORPUSCULAR VOLUME 86.4 FL (78-98); MEAN PLATELET VOLUME 7.1 FL (7.4-10.4); MONOCYTES # (AUTO) 0.8 X10'3 (0-0.9); MONOCYTES % (AUTO) 10.1 % (2-12); NEUTROPHILS # (AUTO) 3.2 X10'3 (1.8-7.7); NEUTROPHILS % (AUTO) 42.1 % (42-75); PRE OP HEMATOCRIT 37.7 % (35.0-45.0); PRE OP HEMOGLOBIN 12.4 g/dL (12.0-16.0); PRE OP PLATELET COUNT 298 X10'3 (140-440); RED BLOOD COUNT 4.36 X10'6 (4.20-5.60); RED CELL DISTRIBUTION WIDTH 13.8 % (11.5-14.5)
[2019-12-03 15:33] LABS: CALCIUM 8.2 MG/DL (8.5-10.1); TOTAL CARBON DIOXIDE 29.4 MMOL/L (24-32)
[2019-12-03 15:39] LABS: PRE OP POTASSIUM 3.9 MMOL/L (3.4-5.1)
[2019-12-03 15:59] LABS: ALBUMIN 3.4 G/DL (3.4-5.0); ALBUMIN/GLOBULIN RATIO 0.9 (1.1-1.5); ALKALINE PHOSPHATASE 60 IU/L (46-116); BLOOD UREA NITROGEN 23 MG/DL (7-18); BUN/CREATININE RATIO 19.2 (6.6-38.0); CHLORIDE 104 MMOL/L (99-107); PRE OP ALT 38 U/L (30-65); PRE OP ANION GAP 7 (8-16); PRE OP BILIRUB, TOTAL 0.3 MG/DL (0.0-1.0); PRE OP GLUCOSE 77 MG/DL (70-104); PRE OP SODIUM 140 MMOL/L (135-145); TOTAL PROTEIN 7.3 G/DL (6.4-8.2); eGFR 47 ML/MIN
[2019-12-03 16:21] LABS: PRE OP AST 36 U/L (10-37)
[~2019-12-10] VITALS: Ht 162.6 cm; Wt 60.6 kg
[2019-12-10] VITALS (12 sets, daily range): BP systolic 134–151; BP diastolic 84–99
[~2019-12-10 10:06] MED LIST changes: -CEPH500C5 PO; -DIAZ5TAB PO; +NO HOME MEDS; -PHEN-824 PO; -TRAM50TA2 PO; +albuterol 2.5 MG/3 ML nebule NEB ONE; +ceFAZolin 2gm in dextrose, iso 50 ML IV ONE; +famotidine 20mg tablet PO ONE; +ringers solution, lacted 1,000 ML IV SCH
[2019-12-10] MEDS ORDERED: iohexol 300 MG/1 ML 50ml polymer ONE (11:14)
[2019-12-10] MEDS ORDERED: fentaNYL/PF 50MCG/1 ML 2ML syringe ONE (11:18)
[2019-12-10] MEDS ORDERED: midazolam 2 mg/2 ml injection ONE (11:18)
[2019-12-10] MEDS ORDERED: sevoflurane 250ml liquid IH ONE (11:22)
[2019-12-10] MEDS ORDERED: LIDOcaine 2% (20mg/ml) 5ml vial ONE (11:33)
[2019-12-10] MEDS ORDERED: ondansetron/PF 4mg/2ml inj ONE (11:33)
[2019-12-10] MEDS ORDERED: dexamethasone sod phosphate 4mg/ml inj. ONE (11:33)
[2019-12-10] MEDS ORDERED: propofol inj 20 ML IV ONE (11:33)
[2019-12-10] MEDS ORDERED: ringers solution, lacted 1,000 ML IV SCH (11:59)
[2019-12-10] MEDS ORDERED: meperidine/PF 25mg/ml syringe IV PRN ×3 (12:00)
[2019-12-10] MEDS ORDERED: ondansetron/PF 4mg/2ml inj IV PRN (12:00)
[2019-12-10] MEDS ORDERED: morphine 2 MG/ML inj. syringe IV PRN (12:00)
[2019-12-10] MEDS ORDERED: morphine 4 MG/ML inj SYRINge IV PRN (12:00)
[2019-12-10] MEDS ORDERED: proCHLORperazine 10 MG/2 ml inj IV PRN (12:00)
--- NOTE | 2019-12-10 12:08 | NUR ---
Received from OR via [facility] , accompanied by Anesthesiologist LUIS MIGUEL and report given by Anesthesiolgist. PATIENT WITH 20G PIV IN RIGHT UE RUNNING LR AT 100. 10L MASK ON WITH 100% SATURATIONS.VSS AT THIS TIME. Addendum: 12/10/19 at 1217 by Alexi Shore RN, RN Amended: Links added.
--- NOTE | 2019-12-10 13:48 | NUR ---
All dc criteria for discharge home has been met. IV taken out without complications. All questions answered regarding dc paperwork. Vss. Significant other present to take patient home. Dressings cdi and vital signs stable. Taken out via wheelchair to personal vehicle where patient taken home by family/friend. Addendum: 12/10/19 at 1355 by Alexi Shore RN, RN Amended: Links added.
== END 2019-12-10 13:48 | disposition home or self-care (01) ==
LOC: PAS 10:06
PROVIDERS: ATTEND Urology
DX: T83.192A Other mechanical complication of indwelling ureteral stent, initial encounter (principal); J45.909 Unspecified asthma, uncomplicated; F41.9 Anxiety disorder, unspecified; K21.9 Gastro-esophageal reflux disease without esophagitis; I10 Essential (primary) hypertension; Z98.51 Tubal ligation status; Z98.890 Other specified postprocedural states; Z88.7 Allergy status to serum and vaccine; Z72.89 Other problems related to lifestyle; F17.210 Nicotine dependence, cigarettes, uncomplicated; Z86.19 Personal history of other infectious and parasitic diseases; Z79.899 Other long term (current) drug therapy; Y83.8 Other surgical procedures as the cause of abnormal reaction of the patient, or of later complication, without mention of misadventure at the time of the procedure; Y92.89 Other specified places as the place of occurrence of the external cause
CPT/HCPCS: 36415; 52315; 76000; 80053; 82948; 85025; 87635; 93005; C1769; J1100; J2001; J2250; J2405; J2704; J3010; Q9967; A4618; J7120

== ENCOUNTER 2020-02-02 09:13 | Emergency (ER) | payer MEDICAID ==
[~2020-02-02] VITALS: Ht 162.6 cm; Wt 56.9 kg
[~2020-02-02 09:13] MED LIST changes: -albuterol 2.5 MG/3 ML nebule NEB ONE; -ceFAZolin 2gm in dextrose, iso 50 ML IV ONE; -famotidine 20mg tablet PO ONE; -ringers solution, lacted 1,000 ML IV SCH
[2020-02-02] MEDS ORDERED: normal saline 1000ML IV soln IVB ONE (09:25)
[2020-02-02] MEDS ORDERED: LORazepam 2 mg/ml vial IV ONE (09:25)
[2020-02-02] MEDS ORDERED: glucagon, human recombinant 1mg kit IV ONE (09:25)
[2020-02-02] MEDS ORDERED: pantoprazole 40 MG vial IV ONE (09:25)
[2020-02-02] MEDS ORDERED: famotidine/PF 10 mg/ml inj IV ONE (09:25)
[2020-02-02] MEDS ORDERED: OMEP20CA15 PO (09:26)
--- NOTE | 2020-02-02 10:42 | NUR ---
PT TO ENDO
[2020-02-02 10:45] VITALS: BP 160/90
[2020-02-02] MEDS ORDERED: MIDAZolam 5mg/5ml vial ONE (11:05)
[2020-02-02] MEDS ORDERED: fentaNYL/PF 50MCG/1 ML 2ML syringe ONE (11:05)
[2020-02-02] MEDS ORDERED: LIDOcaine Viscous 15ml cup ONE (11:05)
[2020-02-02 12:31] VITALS: BP 187/102
[2020-02-02 12:40] VITALS: BP 166/90
[2020-02-02 12:50] VITALS: BP 185/105
[2020-02-02 12:59] VITALS: BP 165/104
[2020-02-02 16:00] VITALS: BP 163/105
== END 2020-02-02 16:06 | disposition home or self-care (01) ==
LOC: ER 09:14
DX: T18.128A Food in esophagus causing other injury, initial encounter (principal); K20.9 Esophagitis, unspecified; I10 Essential (primary) hypertension; J45.909 Unspecified asthma, uncomplicated; Z98.890 Other specified postprocedural states; Z72.89 Other problems related to lifestyle; Z88.7 Allergy status to serum and vaccine; Z79.899 Other long term (current) drug therapy; X58.XXXA Exposure to other specified factors, initial encounter; Y93.89 Activity, other specified; Y92.89 Other specified places as the place of occurrence of the external cause; Y99.8 Other external cause status
CPT/HCPCS: 43247; 43249; 96374; 96375; 99152; 99153; 99285; C1726; C1769; C1773; C9113; J1610; J2060; J2250; J3010; J3490; J7030; J7040; A4620

== ENCOUNTER 2020-08-08 15:11 | Emergency (ER) | payer MEDICAID ==
[~2020-08-08] VITALS: Ht 162.6 cm; Wt 59.1 kg
[~2020-08-08 15:11] MED LIST changes: +CYCL-1 PO; +IBUP-1984 PO; +LISI10TA4 PO; +OMEP20CA15 PO
[2020-08-08] MEDS ORDERED: nitroGLYCERIN 0.4mg SUBLingual tab SL PRN (15:30)
[2020-08-08] MEDS ORDERED: glucagon, human recombinant 1mg kit IV ONE (15:30)
[2020-08-08] MEDS ORDERED: ondansetron/PF 4mg/2ml inj IV ONE (15:30)
[2020-08-08] MEDS ORDERED: LORazepam 2 mg/ml vial IV ONE (15:30)
[2020-08-08] MEDS ORDERED: OMEP-50 PO (16:44)
[2020-08-08] MEDS ORDERED: fentaNYL/PF 50MCG/1 ML 2ML syringe ONE (17:12)
[2020-08-08] MEDS ORDERED: LIDOcaine Viscous 15ml cup ONE (17:12)
[2020-08-08] MEDS ORDERED: MIDAZolam 5mg/5ml vial ONE (17:12)
[2020-08-08 17:20] VITALS: BP 186/104
[2020-08-08 17:40] VITALS: BP 178/94
[2020-08-08 17:50] VITALS: BP 162/97
[2020-08-08 18:00] VITALS: BP 161/88
[2020-08-08 18:10] VITALS: BP 136/84
--- NOTE | 2020-08-08 18:40 | NUR ---
phoned patient daughter Mel at [phone] she will be here to pick her mother up at 1900 ,
[2020-08-08 19:22] VITALS: BP 147/99
== END 2020-08-08 19:25 | disposition home or self-care (01) ==
LOC: MERGE 15:12 → ER 15:12
DX: K22.2 Esophageal obstruction (principal); I10 Essential (primary) hypertension; K21.9 Gastro-esophageal reflux disease without esophagitis; Z88.7 Allergy status to serum and vaccine; Z79.899 Other long term (current) drug therapy; Z87.440 Personal history of urinary (tract) infections
CPT/HCPCS: 43247; 96374; 96375; 99152; 99285; J1610; J2060; J2250; J2405; J3010; J7040; A4620

== ENCOUNTER 2021-01-05 03:03 | Inpatient (IN) | payer MEDICAID ==
[~2021-01-05] VITALS: Ht 157.5 cm; Wt 54.5 kg
[~2021-01-05 03:03] MED LIST changes: +LISI10TA27 PO; -LISI10TA4 PO; +OMEP-50 PO
[2021-01-05] MEDS ORDERED: ondansetron/PF 4mg/2ml inj IV ONE (03:10)
[2021-01-05] MEDS ORDERED: normal saline 1000ML IV soln IVB ONE (03:10)
[2021-01-05 03:40] LABS: CLARITY,URINE CLOUDY (Clear); COLOR,URINE YELLOW (Yellow); GLUCOSE, URINE NEGATIVE (Neg); KETONES,URINE NEGATIVE (Neg); LEUKOCYTE ESTERASE ,URINE LARGE (Neg); NITRITES, URINE POSITIVE (Neg); OCCULT BLOOD,URINE SMALL (Neg); PROTEIN,URINE 100 mg/dl (Neg); UROBILINOGEN,URINE 0.2 E.U/dL (0.2-1.0)
[2021-01-05 03:45] LABS: UA COLLECTION TYPE CLN CATCH MIDSTREAM
[2021-01-05 03:46] LABS: BACTERIA,URINE 4+ /HPF (Neg); RBC,URINE NONE SEEN /HPF (0-2); WBC,URINE 20-30 /HPF (0-4)
[2021-01-05 03:47] LABS: BASOPHILS # (AUTO) 0.1 X10'3 (0-0.2); BASOPHILS % (AUTO) 0.6 % (0-1); EOSINOPHILS # (AUTO) 0.1 X10'3 (0-0.9); EOSINOPHILS % (AUTO) 0.7 % (0-6); HEMATOCRIT 37.8 % (35.0-45.0); HEMOGLOBIN 12.1 g/dl (12.0-16.0); LYMPHOCYTES # (AUTO) 1.2 X10'3 (1.1-4.8); LYMPHOCYTES % (AUTO) 8.5 % (21-51); MEAN CORPUSCULAR HEMOGLOBIN 28.4 PG (27.0-31.0); MEAN CORPUSCULAR HGB CONC 32.1 g/dL (33.0-36.5); MEAN CORPUSCULAR VOLUME 88.7 FL (78-98); MEAN PLATELET VOLUME 7.6 FL (7.4-10.4); MONOCYTES # (AUTO) 1.5 X10'3 (0-0.9); MONOCYTES % (AUTO) 10.4 % (2-12); NEUTROPHILS # (AUTO) 11.5 X10'3 (1.8-7.7); NEUTROPHILS % (AUTO) 79.8 % (42-75); PLATELET COUNT 235 X10'3 (140-440); RED BLOOD COUNT 4.27 X10'6 (4.20-5.60); RED CELL DISTRIBUTION WIDTH 12.6 % (11.5-14.5); SQUAMOUS EPITHELIAL CELL,UR FEW /LPF (FEW); WHITE BLOOD COUNT 14.4 X10'3 (4.5-11.0)
[2021-01-05] MEDS: morphine 4 MG/ML inj SYRINge IV PRN ×3 (03:50→10:16)
[2021-01-05] MEDS ORDERED: ketorolac trometh. 30mg/ml inj. IV ONE (03:50)
[2021-01-05 03:56] LABS: ALANINE AMINOTRANSFERASE 20 U/L (12-78); ALBUMIN 2.4 G/DL (3.4-5.0); ALBUMIN/GLOBULIN RATIO 0.6 (1.1-1.5); ALKALINE PHOSPHATASE 51 IU/L (46-116); ANION GAP 10 (8-16); ASPARTATE AMINO TRANSFERASE 14 U/L (10-37); BILIRUBIN,TOTAL 0.5 MG/DL (0.1-1.0); BLOOD UREA NITROGEN 14 MG/DL (7-18); BUN/CREATININE RATIO 14.4 (6.6-38.0); CALCIUM 7.7 MG/DL (8.5-10.1); CHLORIDE 103 MMOL/L (99-107); CREATININE 0.97 MG/DL (0.40-0.90); GLUCOSE 166 MG/DL (70-104); LIPASE 51 U/L (73-393); POTASSIUM 3.1 MMOL/L (3.5-5.1); SODIUM 137 MMOL/L (135-145); TOTAL CARBON DIOXIDE 23.8 MMOL/L (24-32); TOTAL PROTEIN 6.4 G/DL (6.4-8.2); eGFR 59 ML/MIN
[2021-01-05] MEDS ORDERED: CefTRIAXone/D5W-Rocephin 1gm 50 ML IV ONE (04:10)
[2021-01-05] MEDS ORDERED: morphine 2 MG/ML inj. syringe IV PRN (05:35)
[2021-01-05] MEDS ORDERED: HYDROcodone/acetaminophen 5mg/325mg tablet PO PRN (05:35)
[2021-01-05] MEDS ORDERED: magnesium 2GM in 50ml NS 50 ML IV PRN (05:35)
[2021-01-05] MEDS ORDERED: acetaminophen 325mg tablet PO PRN ×2 (05:35)
[2021-01-05] MEDS ORDERED: potassium Cl 20 mEq SR tablet PO PRN ×2 (05:35)
[2021-01-05] MEDS ORDERED: mag hydrox/Alum hydrox/simeth 30ml oral suspension PO PRN (05:35)
[2021-01-05] MEDS ORDERED: potassium Cl 40MEQ/1/2NS 520ml 520 ML IV PRN ×2 (05:35)
[2021-01-05] MEDS ORDERED: magnesium Cl slow-release 64mg tablet PO PRN (05:35)
[2021-01-05] MEDS ORDERED: ondansetron/PF 4mg/2ml inj IV PRN (05:35)
[2021-01-05] MEDS ORDERED: magnesium 4gm in 100ml NS 100 ML IV PRN (05:35)
[2021-01-05] MEDS: CefTRIAXone 2gm/D5W 50ml BAG 50 ML IV SCH (07:08)
[2021-01-05] MEDS: heparin, porcine 5000 units/ml vial SQ SCH ×2 (07:20→19:07)
[2021-01-05] MEDS: K and/or MAG REPLACEMENT MC SCH ×2 (07:21→20:00)
[2021-01-05] MEDS: normal saline 1000ml 1,000 ML IV SCH ×3 (07:21→21:18)
[2021-01-05] MEDS: nicotine 14mg patch - 24hr TD SCH ×2 (07:21→07:26)
--- NOTE | 2021-01-05 09:29 | NUR ---
patient asleep at this time,awiting for room assignment.
[2021-01-05] MEDS ORDERED: NO HOME MEDS (10:02)
[2021-01-05 13:00] VITALS: BP 137/82
[2021-01-05] MEDS: morphine 2 MG/ML inj. syringe IV PRN ×2 (13:12→19:01)
--- NOTE | 2021-01-05 15:48 | NUR ---
Patient wanting carmen although NPO, paged dr Negrete twice with no response.
--- NOTE | 2021-01-05 19:04 | NUR ---
Patient was sleeping but woke easily for skin check. Pt states she is painful, Lisa will get patient pain med. Dr Negrete allowed patient to have clear liquid diet while waiting for urology to consult.
--- NOTE | 2021-01-05 19:05 | NUR ---
Patient in room REJI 360. I have received report from TRACEY BARAHONA and had the opportunity to ask questions and assume patient care.
[2021-01-05 20:00] VITALS: BP 153/87
[2021-01-05] MEDS ORDERED: temazepam 15mg capsule PO PRN (21:00)
[2021-01-05] MEDS: HYDROcodone/acetaminophen 10/325mg tab PO PRN (21:18)
[2021-01-06] VITALS: BP 149/59
[2021-01-06] MEDS: morphine 2 MG/ML inj. syringe IV PRN ×2 (00:21→07:10)
[2021-01-06] MEDS: HYDROcodone/acetaminophen 10/325mg tab PO PRN ×2 (04:33→17:42)
[2021-01-06] MEDS: normal saline 1000ml 1,000 ML IV SCH ×2 (04:52→13:35)
[2021-01-06 06:30] VITALS: BP 145/98
[2021-01-06 06:36] LABS: ALANINE AMINOTRANSFERASE 13 U/L (12-78); ALBUMIN 2.1 G/DL (3.4-5.0); ALBUMIN/GLOBULIN RATIO 0.5 (1.1-1.5); ALKALINE PHOSPHATASE 58 IU/L (46-116); ANION GAP 7 (8-16); ASPARTATE AMINO TRANSFERASE 13 U/L (10-37); BILIRUBIN,TOTAL 0.3 MG/DL (0.1-1.0); BLOOD UREA NITROGEN 11 MG/DL (7-18); BUN/CREATININE RATIO 10.4 (6.6-38.0); CALCIUM 7.7 MG/DL (8.5-10.1); CHLORIDE 106 MMOL/L (99-107); CREATININE 1.06 MG/DL (0.40-0.90); GLUCOSE 141 MG/DL (70-104); MAGNESIUM 1.6 MG/DL (1.5-2.4); POTASSIUM 4.3 MMOL/L (3.5-5.1); SODIUM 139 MMOL/L (135-145); TOTAL CARBON DIOXIDE 25.7 MMOL/L (24-32); eGFR 54 ML/MIN
[2021-01-06 06:47] LABS: BASOPHILS # (AUTO) 0.1 X10'3 (0-0.2); BASOPHILS % (AUTO) 0.6 % (0-1); EOSINOPHILS # (AUTO) 0.1 X10'3 (0-0.9); EOSINOPHILS % (AUTO) 1.2 % (0-6); HEMATOCRIT 36.1 % (35.0-45.0); HEMOGLOBIN 11.7 g/dl (12.0-16.0); LYMPHOCYTES # (AUTO) 1.2 X10'3 (1.1-4.8); LYMPHOCYTES % (AUTO) 11.9 % (21-51); MEAN CORPUSCULAR HEMOGLOBIN 28.6 PG (27.0-31.0); MEAN CORPUSCULAR HGB CONC 32.3 g/dL (33.0-36.5); MEAN CORPUSCULAR VOLUME 88.4 FL (78-98); MEAN PLATELET VOLUME 7.7 FL (7.4-10.4); MONOCYTES # (AUTO) 1.2 X10'3 (0-0.9); MONOCYTES % (AUTO) 11.9 % (2-12); NEUTROPHILS # (AUTO) 7.4 X10'3 (1.8-7.7); NEUTROPHILS % (AUTO) 74.4 % (42-75); PLATELET COUNT 204 X10'3 (140-440); RED BLOOD COUNT 4.08 X10'6 (4.20-5.60); RED CELL DISTRIBUTION WIDTH 12.7 % (11.5-14.5); WHITE BLOOD COUNT 9.9 X10'3 (4.5-11.0)
--- NOTE | 2021-01-06 06:55 | NUR ---
Problems reprioritized. Patient report given, questions answered & plan of care reviewed with ZAKIYA RN.
--- NOTE | 2021-01-06 07:00 | NUR ---
Patient in room REJI 360. I have received report from Rossi Richey RN and had the opportunity to ask questions and assume patient care.
[2021-01-06] MEDS: K and/or MAG REPLACEMENT MC SCH (08:00)
[2021-01-06] MEDS ORDERED: ibuprofen tablet 400 MG TABLET PO PRN (08:35)
[2021-01-06] MEDS ORDERED: magnesium hydroxide 30ml (MOM) UD suspension PO PRN (08:35)
[2021-01-06] MEDS: heparin, porcine 5000 units/ml vial SQ SCH (09:09)
[2021-01-06] MEDS: CefTRIAXone 2gm/D5W 50ml BAG 50 ML IV SCH (09:09)
[2021-01-06 10:48] VITALS: BP 145/98
[2021-01-06 11:00] VITALS: BP 148/93
--- NOTE | 2021-01-06 11:00 | NUR ---
Patient is refusing Covid 19 test that needs to be done prior to surgery. She said she did not have Covid vaccine and that she did not want it. The primary nurse Katerina was at bedside also talking to the patient while I was in the room. Patient was told that OR will not do the surgery if she has not tested for Covid. Patient was obviously upset about the Covid test need to be done. I called the OR, spoke to the charge nurse, she was aware about patient refusal to have Covid testing. She said that surgeon and anesthesiologist are aware about this and that they could not do the surgery without the Covid test done. OR charge nurse said to call OR if patient changed her mind.
[2021-01-06 11:36] LABS: PRE OP PARTIAL THROMB. TIME 34 SECONDS (22-32)
[2021-01-06 18:00] VITALS: BP 146/91
--- NOTE | 2021-01-06 18:50 | NUR ---
Problems reprioritized. Patient report given, questions answered & plan of care reviewed with JUN Toscano.
[2021-01-06] MEDS ORDERED: lactobacillus rhamnosus 10,000 MMU CELLS/CAPSULE PO SCH (20:00)
--- NOTE | 2021-01-06 20:20 | NUR ---
pt refused to be assessed wanted to leave [facility]. requested papers and given to her. Addendum: 01/06/21 at 2050 by Dorcas Osuna RN Amended: Links added.
--- NOTE | 2021-01-06 20:25 | NUR ---
pt stated didn't want covid swab and wants to talk with Dr Stern she stated she wants to leave the hospital. asked her a few questions pt stated she has not had covid or the vaccination. that she has been swabbed and negative in the past and has had 2 surgeries. pt adament she not get a swab. pt clear she wanted to leave and talk with Dr Stern. Wire Weaver dc'd Iv intact and insistant she ambulate out of hospital with broker in charge. after she signed the AMA paper work. hospital pilot supervisor notfied of this.
--- NOTE | 2021-01-06 20:53 | NUR ---
Dr Rangel paged and notified that pt left [place] because she did not want to take pre op covid swab test.
== END 2021-01-06 20:45 | disposition left against medical advice (07) | DRG 463 ==
LOC: ER 03:03 → ED HOLD 05:34 → SUR 3N 12:59
PROVIDERS: ADMIT Internal Medicine; ATTEND Internal Medicine
DX: N39.0 Urinary tract infection, site not specified (principal); N20.1 Calculus of ureter; F12.90 Cannabis use, unspecified, uncomplicated; N13.9 Obstructive and reflux uropathy, unspecified; F17.210 Nicotine dependence, cigarettes, uncomplicated; G43.909 Migraine, unspecified, not intractable, without status migrainosus; E87.6 Hypokalemia; R03.0 Elevated blood-pressure reading, without diagnosis of hypertension; G89.29 Other chronic pain; Z53.29 Procedure and treatment not carried out because of patient's decision for other reasons; J45.909 Unspecified asthma, uncomplicated; Z82.49 Family history of ischemic heart disease and other diseases of the circulatory system; Z87.442 Personal history of urinary calculi; Z88.7 Allergy status to serum and vaccine; Z71.6 Tobacco abuse counseling
CPT/HCPCS: 36415; 71045; 74176; 80053; 81001; 83605; 83690; 83735; 85025; 85610; 85730; 87040; 87077; 87081; 87088; 87186; 96361; 96365; 96375; 97161; 97530; 99285; G0378; J0696; J1644; J1885; J2270; J2405; J3480; J7030

== ENCOUNTER 2021-03-10 09:21 | Emergency (ER) | payer MEDICAID ==
[~2021-03-10] VITALS: Ht 162.6 cm; Wt 59.1 kg
[~2021-03-10 09:21] MED LIST changes: -CYCL-1 PO; -IBUP-1984 PO; -LISI10TA27 PO; -OMEP-50 PO; -OMEP20CA15 PO
[2021-03-10 10:03] LABS: BASOPHILS # (AUTO) 0.1 X10'3 (0-0.2); BASOPHILS % (AUTO) 1.2 % (0-1); EOSINOPHILS # (AUTO) 0.2 X10'3 (0-0.9); EOSINOPHILS % (AUTO) 3.6 % (0-6); HEMATOCRIT 38.3 % (35.0-45.0); HEMOGLOBIN 12.8 g/dl (12.0-16.0); LYMPHOCYTES # (AUTO) 2.5 X10'3 (1.1-4.8); LYMPHOCYTES % (AUTO) 37.2 % (21-51); MEAN CORPUSCULAR HEMOGLOBIN 28.5 PG (27.0-31.0); MEAN CORPUSCULAR HGB CONC 33.3 g/dL (33.0-36.5); MEAN CORPUSCULAR VOLUME 85.5 FL (78-98); MEAN PLATELET VOLUME 7.1 FL (7.4-10.4); MONOCYTES # (AUTO) 0.5 X10'3 (0-0.9); MONOCYTES % (AUTO) 7.7 % (2-12); NEUTROPHILS # (AUTO) 3.4 X10'3 (1.8-7.7); NEUTROPHILS % (AUTO) 50.3 % (42-75); PLATELET COUNT 304 X10'3 (140-440); RED BLOOD COUNT 4.47 X10'6 (4.20-5.60); RED CELL DISTRIBUTION WIDTH 13.5 % (11.5-14.5); WHITE BLOOD COUNT 6.8 X10'3 (4.5-11.0)
[2021-03-10] MEDS ORDERED: ondansetron/PF 4mg/2ml inj IV ONE (10:10)
[2021-03-10] MEDS ORDERED: morphine 4 MG/ML inj SYRINge IV ONE (10:10)
[2021-03-10 10:19] LABS: ALANINE AMINOTRANSFERASE 51 U/L (12-78); ALBUMIN 3.5 G/DL (3.4-5.0); ALBUMIN/GLOBULIN RATIO 0.9 (1.1-1.5); ALKALINE PHOSPHATASE 63 IU/L (46-116); ANION GAP 8 (8-16); ASPARTATE AMINO TRANSFERASE 19 U/L (10-37); BILIRUBIN,TOTAL 0.2 MG/DL (0.1-1.0); BLOOD UREA NITROGEN 10 MG/DL (7-18); BUN/CREATININE RATIO 11.5 (6.6-38.0); CALCIUM 8.3 MG/DL (8.5-10.1); CHLORIDE 106 MMOL/L (99-107); CREATININE 0.87 MG/DL (0.40-0.90); GLUCOSE 100 MG/DL (70-104); POTASSIUM 3.7 MMOL/L (3.5-5.1); SODIUM 140 MMOL/L (135-145); TOTAL CARBON DIOXIDE 26.2 MMOL/L (24-32); TOTAL PROTEIN 7.3 G/DL (6.4-8.2); eGFR 67 ML/MIN
[2021-03-10] MEDS ORDERED: acetaminophen 325mg tablet PO ONE (10:45)
[2021-03-10] MEDS ORDERED: ketorolac trometh. 30mg/ml inj. IV ONE (10:45)
[2021-03-10] MEDS ORDERED: normal saline 1000ml 1,000 ML IV ONE (10:45)
[2021-03-10 11:00] LABS: CLARITY,URINE CLEAR (Clear); COLOR,URINE YELLOW (Yellow); GLUCOSE, URINE NEGATIVE (Neg); KETONES,URINE NEGATIVE (Neg); LEUKOCYTE ESTERASE ,URINE NEGATIVE (Neg); NITRITES, URINE NEGATIVE (Neg); OCCULT BLOOD,URINE LARGE (Neg); PROTEIN,URINE TRACE mg/dl (Neg); UROBILINOGEN,URINE 0.2 E.U/dL (0.2-1.0)
[2021-03-10 11:03] LABS: UA COLLECTION TYPE CLN CATCH MIDSTREAM; WBC,URINE NONE SEEN /HPF (0-4)
[2021-03-10 11:04] LABS: BACTERIA,URINE NONE SEEN /HPF (Neg); CAL OXALATE CRYSTALS 2+ /HPF (NEGATIVE); MUCUS STRANDS NONE SEEN /LPF (Neg); SQUAMOUS EPITHELIAL CELL,UR FEW /LPF (FEW)
[2021-03-10] MEDS ORDERED: ONDA4TAB6 PO (11:29)
[2021-03-10] MEDS ORDERED: HYDR-3965 PO (11:29)
[2021-03-10 12:07] VITALS: BP 149/95
== END 2021-03-10 12:47 | disposition home or self-care (01) ==
LOC: ER 09:22
DX: M54.5 Low back pain (principal); R11.2 Nausea with vomiting, unspecified; I10 Essential (primary) hypertension; J45.909 Unspecified asthma, uncomplicated; Z87.442 Personal history of urinary calculi
CPT/HCPCS: 36415; 74150; 80053; 81001; 85025; 96361; 96374; 96375; 99284; J1885; J2270; J2405; J7030

== ENCOUNTER 2021-03-12 12:08 | Emergency (ER) | payer MEDICAID ==
[~2021-03-12] VITALS: Ht 162.6 cm; Wt 61.7 kg
[~2021-03-12 12:08] MED LIST changes: +HYDR-3965 PO; +ONDA4TAB6 PO
[2021-03-12 12:42] VITALS: BP 161/111
[2021-03-12 12:53] LABS: BASOPHILS # (AUTO) 0.1 X10'3 (0-0.2); BASOPHILS % (AUTO) 0.9 % (0-1); EOSINOPHILS # (AUTO) 0.3 X10'3 (0-0.9); EOSINOPHILS % (AUTO) 3.5 % (0-6); HEMATOCRIT 40.9 % (35.0-45.0); HEMOGLOBIN 13.2 g/dl (12.0-16.0); LYMPHOCYTES # (AUTO) 2.4 X10'3 (1.1-4.8); LYMPHOCYTES % (AUTO) 32.4 % (21-51); MEAN CORPUSCULAR HEMOGLOBIN 28.3 PG (27.0-31.0); MEAN CORPUSCULAR HGB CONC 32.4 g/dL (33.0-36.5); MEAN CORPUSCULAR VOLUME 87.4 FL (78-98); MEAN PLATELET VOLUME 7.3 FL (7.4-10.4); MONOCYTES # (AUTO) 0.5 X10'3 (0-0.9); MONOCYTES % (AUTO) 7.2 % (2-12); NEUTROPHILS # (AUTO) 4.1 X10'3 (1.8-7.7); PLATELET COUNT 337 X10'3 (140-440); RED BLOOD COUNT 4.68 X10'6 (4.20-5.60); RED CELL DISTRIBUTION WIDTH 13.8 % (11.5-14.5); WHITE BLOOD COUNT 7.4 X10'3 (4.5-11.0)
[2021-03-12 13:00] LABS: PARTIAL THROMBOPLASTIN TIME 25 SECONDS (22-32)
[2021-03-12 13:04] LABS: ALBUMIN 3.2 G/DL (3.4-5.0); ALBUMIN/GLOBULIN RATIO 0.8 (1.1-1.5); ANION GAP 9 (8-16); ASPARTATE AMINO TRANSFERASE 19 U/L (10-37); BILIRUBIN,TOTAL 0.1 MG/DL (0.1-1.0); BLOOD UREA NITROGEN 12 MG/DL (7-18); BUN/CREATININE RATIO 11.5 (6.6-38.0); CALCIUM 8.1 MG/DL (8.5-10.1); CHLORIDE 105 MMOL/L (99-107); CREATININE 1.04 MG/DL (0.40-0.90); GLUCOSE 105 MG/DL (70-104); POTASSIUM 4.1 MMOL/L (3.5-5.1); SODIUM 144 MMOL/L (135-145); TOTAL CARBON DIOXIDE 29.7 MMOL/L (24-32); TOTAL PROTEIN 7.3 G/DL (6.4-8.2); eGFR 55 ML/MIN
[2021-03-12 13:05] LABS: ALANINE AMINOTRANSFERASE 41 U/L (12-78); ALKALINE PHOSPHATASE 54 IU/L (46-116)
[2021-03-12] MEDS ORDERED: morphine 4 MG/ML inj SYRINge IV ONE (14:15)
[2021-03-12] MEDS ORDERED: ondansetron/PF 4mg/2ml inj IV ONE (14:15)
[2021-03-12] MEDS ORDERED: iohexol 300mg/ml 100ml inj. ONE (17:20)
--- NOTE | 2021-03-12 19:13 | NUR ---
Pt was not in lobby when room became available. Lobby, Parking area and RAP section checked. Pt not found
== END 2021-03-12 23:18 | disposition left against medical advice (07) ==
LOC: ER 12:09
DX: R10.9 Unspecified abdominal pain (principal); Z87.442 Personal history of urinary calculi; J45.909 Unspecified asthma, uncomplicated; I10 Essential (primary) hypertension; F17.210 Nicotine dependence, cigarettes, uncomplicated
CPT/HCPCS: 36415; 80053; 85025; 85610; 85730; 99283; Q9967

== ENCOUNTER 2021-05-21 11:51 | Emergency (ER) | payer MEDICAID ==
[~2021-05-21] VITALS: Ht 162.6 cm; Wt 59.0 kg
[~2021-05-21 11:51] MED LIST changes: -HYDR-3965 PO
--- NOTE | 2021-05-21 14:44 | NUR ---
PT'S CALLED WITH HIS PHONE # FOR PT: PHONE # GIVEN TO PT
[2021-05-21 15:08] LABS: CLARITY,URINE CLOUDY (Clear); COLOR,URINE Yellow (Yellow); UA COLLECTION TYPE CLN CATCH MIDSTREAM
[2021-05-21 15:09] LABS: GLUCOSE, URINE NEGATIVE (Neg); KETONES,URINE 40 mg/dl (Neg); NITRITES, URINE NEGATIVE (Neg); OCCULT BLOOD,URINE LARGE (Neg); PROTEIN,URINE 100 mg/dl (Neg); UROBILINOGEN,URINE 0.2 E.U/dL (0.2-1.0)
[2021-05-21 15:10] LABS: LEUKOCYTE ESTERASE ,URINE NEGATIVE (Neg)
[2021-05-21 15:17] LABS: BACTERIA,URINE 1+ /HPF (Neg); MUCUS STRANDS FEW /LPF (Neg); SQUAMOUS EPITHELIAL CELL,UR MODERATE /LPF (FEW); WBC,URINE 20-30 /HPF (0-4)
[2021-05-21 15:18] LABS: FINE GRANULAR CAST 0-3 /LPF (NEGATIVE)
[2021-05-21 16:20] VITALS: BP 139/105
[2021-05-21] MEDS ORDERED: MIDAZolam 1 MG/ML 5ML VIAL ONE (16:29)
[2021-05-21] MEDS ORDERED: fentaNYL/PF 50MCG/1 ML 2ML syringe ONE (16:29)
[2021-05-21] MEDS ORDERED: LIDOcaine 1% 30ml preserv. free vial ONE (16:29)
[2021-05-21] MEDS ORDERED: LIDOcaine Viscous 15ml cup ONE (16:30)
[2021-05-21 17:05] VITALS: BP 190/114
[2021-05-21 17:15] VITALS: BP 182/114
[2021-05-21 17:25] VITALS: BP 170/110
[2021-05-21 17:35] VITALS: BP 169/107
[2021-05-21] MEDS ORDERED: CEPH-585 PO (19:21)
[2021-05-21] MEDS ORDERED: OMEP40CA21 PO (19:39)
[2021-05-21 20:06] VITALS: BP 167/106
== END 2021-05-21 20:09 | disposition home or self-care (01) ==
LOC: ER 11:52
DX: T17.208A Unspecified foreign body in pharynx causing other injury, initial encounter (principal); J45.909 Unspecified asthma, uncomplicated; I10 Essential (primary) hypertension; Z87.442 Personal history of urinary calculi; Z88.8 Allergy status to other drugs, medicaments and biological substances; Z79.899 Other long term (current) drug therapy; X58.XXXA Exposure to other specified factors, initial encounter; Y93.89 Activity, other specified; Y92.89 Other specified places as the place of occurrence of the external cause; Y99.8 Other external cause status
CPT/HCPCS: 43247; 71045; 81001; 87088; 93005; 99285; C1773; J2001; J2250; J3010; J7040; Z7512; 99152; 99153; A4620

== ENCOUNTER 2021-12-20 11:45 | Emergency (ER) | payer MEDICAID ==
[~2021-12-20] VITALS: Ht 162.6 cm; Wt 60.0 kg
[~2021-12-20 11:45] MED LIST changes: +CEPH-585 PO
[2021-12-20 15:32] LABS: BASOPHILS # (AUTO) 0.1 X10'3 (0-0.2); BASOPHILS % (AUTO) 1.2 % (0-1); EOSINOPHILS # (AUTO) 0.4 X10'3 (0-0.9); EOSINOPHILS % (AUTO) 5.5 % (0-6); HEMATOCRIT 38.2 % (35.0-45.0); LYMPHOCYTES # (AUTO) 2.8 X10'3 (1.1-4.8); LYMPHOCYTES % (AUTO) 36.6 % (21-51); MEAN CORPUSCULAR HEMOGLOBIN 26.7 PG (27.0-31.0); MEAN CORPUSCULAR HGB CONC 31.5 g/dL (33.0-36.5); MEAN CORPUSCULAR VOLUME 84.8 FL (78-98); MEAN PLATELET VOLUME 7.8 FL (7.4-10.4); MONOCYTES # (AUTO) 0.8 X10'3 (0-0.9); MONOCYTES % (AUTO) 10.4 % (2-12); NEUTROPHILS # (AUTO) 3.6 X10'3 (1.8-7.7); NEUTROPHILS % (AUTO) 46.3 % (42-75); PLATELET COUNT 312 X10'3 (140-440); RED CELL DISTRIBUTION WIDTH 14.1 % (11.5-14.5); WHITE BLOOD COUNT 7.7 X10'3 (4.5-11.0)
[2021-12-20 15:34] LABS: CLARITY,URINE SLIGHTLY CLOUDY (Clear); COLOR,URINE YELLOW (Yellow); GLUCOSE, URINE NEGATIVE (Neg); KETONES,URINE NEGATIVE (Neg); LEUKOCYTE ESTERASE ,URINE LARGE (Neg); NITRITES, URINE POSITIVE (Neg); OCCULT BLOOD,URINE MODERATE (Neg); PROTEIN,URINE TRACE mg/dl (Neg); UROBILINOGEN,URINE 0.2 E.U/dL (0.2-1.0)
[2021-12-20 15:39] LABS: UA COLLECTION TYPE OTHER
[2021-12-20 15:42] LABS: ALANINE AMINOTRANSFERASE 28 U/L (12-78); ALBUMIN 3.2 G/DL (3.4-5.0); ALBUMIN/GLOBULIN RATIO 0.7 (1.1-1.5); ALKALINE PHOSPHATASE 54 IU/L (46-116); ANION GAP 12 (8-16); ASPARTATE AMINO TRANSFERASE 24 U/L (10-37); BILIRUBIN,TOTAL 0.2 MG/DL (0.1-1.0); BLOOD UREA NITROGEN 11 MG/DL (7-18); BUN/CREATININE RATIO 10.5 (6.6-38.0); CALCIUM 8.7 MG/DL (8.5-10.1); CHLORIDE 107 MMOL/L (99-107); CREATININE 1.05 MG/DL (0.40-0.90); GLUCOSE 103 MG/DL (70-104); POTASSIUM 3.4 MMOL/L (3.5-5.1); SODIUM 144 MMOL/L (135-145); TOTAL CARBON DIOXIDE 24.8 MMOL/L (24-32); TOTAL PROTEIN 7.8 G/DL (6.4-8.2); eGFR 54 ML/MIN
[2021-12-20 15:43] LABS: SQUAMOUS EPITHELIAL CELL,UR FEW /LPF (FEW)
[2021-12-20 15:44] LABS: BACTERIA,URINE 1+ /HPF (Neg)
[2021-12-20 15:46] LABS: WBC CLUMPS,URINE FEW /HPF (NEGATIVE)
[2021-12-20 18:07] VITALS: BP 149/89
[2021-12-20] MEDS ORDERED: cephalexin 500mg capsule PO ONE (18:15)
--- NOTE | 2021-12-20 18:39 | NUR ---
[facility] PL[facility], AND [facility] IN REGARDS TO GETTING A HOLD OF PTS UROLOGIST THAT SAW PT 3WKS AGO FOR [address] LOMELI. AFTER MULTIPLE ATTEMPLTS FINALLY FOUND THAT THE [facility] IS CLOSED AT THIS TIME AND THERE IS NOT AN AVAILABLE WAY TO GET A HOLD OF UROLOGIST AT THIS TIME. REPORTED FINDINGD TO DR. LOMELI AND DOCUMENTED MY ATTEMPTS.
[2021-12-20] MEDS ORDERED: CEPH-585 PO (20:04)
[2021-12-20] MEDS ORDERED: LORazepam 1 MG tablet PO ONE (20:25)
--- NOTE | 2021-12-22 12:46 | NUR ---
ATTEMPTED TO CONTACT PT REGARDING LAB RESULTS FROM VISIT ON 12/20. PT'S PHONE MAILBOX IS FULL AND UNABLE TO LEAVE MESSAGE.
== END 2021-12-20 21:18 | disposition home or self-care (01) ==
LOC: ER 11:45
DX: Z43.6 Encounter for attention to other artificial openings of urinary tract (principal); R10.9 Unspecified abdominal pain; I10 Essential (primary) hypertension; J45.909 Unspecified asthma, uncomplicated; Z87.442 Personal history of urinary calculi; Z72.89 Other problems related to lifestyle; Z88.7 Allergy status to serum and vaccine; Z79.899 Other long term (current) drug therapy
CPT/HCPCS: 36415; 80053; 81001; 85025; 87077; 87088; 87186; 99284

== ENCOUNTER 2021-12-27 09:42 | Emergency (ER) | payer MEDICAID ==
[~2021-12-27] VITALS: Ht 162.6 cm; Wt 60.0 kg
[2021-12-27 10:27] LABS: BASOPHILS # (AUTO) 0.1 X10'3 (0-0.2); BASOPHILS % (AUTO) 1.1 % (0-1); EOSINOPHILS # (AUTO) 0.7 X10'3 (0-0.9); EOSINOPHILS % (AUTO) 7.2 % (0-6); HEMATOCRIT 41.3 % (35.0-45.0); HEMOGLOBIN 13.3 g/dl (12.0-16.0); LYMPHOCYTES # (AUTO) 3.3 X10'3 (1.1-4.8); LYMPHOCYTES % (AUTO) 34.3 % (21-51); MEAN CORPUSCULAR HEMOGLOBIN 27.4 PG (27.0-31.0); MEAN CORPUSCULAR HGB CONC 32.2 g/dL (33.0-36.5); MEAN CORPUSCULAR VOLUME 84.8 FL (78-98); MEAN PLATELET VOLUME 7.3 FL (7.4-10.4); MONOCYTES # (AUTO) 0.9 X10'3 (0-0.9); MONOCYTES % (AUTO) 9.3 % (2-12); NEUTROPHILS # (AUTO) 4.6 X10'3 (1.8-7.7); NEUTROPHILS % (AUTO) 48.1 % (42-75); PLATELET COUNT 369 X10'3 (140-440); RED BLOOD COUNT 4.87 X10'6 (4.20-5.60); RED CELL DISTRIBUTION WIDTH 14.5 % (11.5-14.5); WHITE BLOOD COUNT 9.5 X10'3 (4.5-11.0)
[2021-12-27 10:28] LABS: CLARITY,URINE CLOUDY (Clear); COLOR,URINE YELLOW (Yellow); GLUCOSE, URINE NEGATIVE (Neg); KETONES,URINE NEGATIVE (Neg); LEUKOCYTE ESTERASE ,URINE SMALL (Neg); NITRITES, URINE POSITIVE (Neg); OCCULT BLOOD,URINE LARGE (Neg); PH,URINE 5.5 (4.8-8.0); PROTEIN,URINE 100 mg/dl (Neg); UROBILINOGEN,URINE 0.2 E.U/dL (0.2-1.0)
[2021-12-27 10:31] LABS: UA COLLECTION TYPE OTHER; URINE HCG NEGATIVE (NEG)
[2021-12-27] MEDS ORDERED: ketorolac trometh. 30mg/ml inj. IV ONE (10:35)
[2021-12-27 10:36] LABS: MUCUS STRANDS MODERATE /LPF (Neg); SQUAMOUS EPITHELIAL CELL,UR FEW /LPF (FEW)
[2021-12-27 10:39] LABS: WBC CLUMPS,URINE MANY /HPF (NEGATIVE)
[2021-12-27 10:42] LABS: BACTERIA,URINE 2+ /HPF (Neg); RBC,URINE 50-100 /HPF (0-2); WBC,URINE TNTC /HPF (0-4)
[2021-12-27 10:43] LABS: ALANINE AMINOTRANSFERASE 40 U/L (12-78); ALBUMIN 3.6 G/DL (3.4-5.0); ALBUMIN/GLOBULIN RATIO 0.8 (1.1-1.5); ALKALINE PHOSPHATASE 67 IU/L (46-116); ANION GAP 9 (8-16); ASPARTATE AMINO TRANSFERASE 34 U/L (10-37); BILIRUBIN,TOTAL 0.6 MG/DL (0.1-1.0); BLOOD UREA NITROGEN 18 MG/DL (7-18); BUN/CREATININE RATIO 16.2 (6.6-38.0); CALCIUM 8.9 MG/DL (8.5-10.1); CHLORIDE 105 MMOL/L (99-107); CREATININE 1.11 MG/DL (0.40-0.90); GLUCOSE 127 MG/DL (70-104); LIPASE 124 U/L (73-393); POTASSIUM 3.5 MMOL/L (3.5-5.1); SODIUM 140 MMOL/L (135-145); TOTAL CARBON DIOXIDE 26.4 MMOL/L (24-32); TOTAL PROTEIN 8.4 G/DL (6.4-8.2); eGFR 51 ML/MIN
--- NOTE | 2021-12-27 11:27 | NUR ---
PT RETURNED FROM CT. DRESSING, TUBING/BAG FOR NEPHROSTOMY SITE CHANGED BY MARICEL BARAHONA
[2021-12-27 12:07] VITALS: BP 152/78
== END 2021-12-27 12:15 | disposition home or self-care (01) ==
LOC: ER 09:42
DX: N20.0 Calculus of kidney (principal); I10 Essential (primary) hypertension; J45.909 Unspecified asthma, uncomplicated; Z87.448 Personal history of other diseases of urinary system; Z88.8 Allergy status to other drugs, medicaments and biological substances
CPT/HCPCS: 36415; 74176; 80053; 81001; 81025; 83690; 85025; 87077; 87088; 87186; 96374; 99284; J1885

== ENCOUNTER 2022-01-27 16:02 | Emergency (ER) | payer MEDICAID ==
[~2022-01-27] VITALS: Ht 162.6 cm; Wt 60.0 kg
[2022-01-27 17:26] LABS: BASOPHILS # (AUTO) 0.1 X10'3 (0-0.2); BASOPHILS % (AUTO) 1.7 % (0-1); EOSINOPHILS # (AUTO) 0.4 X10'3 (0-0.9); EOSINOPHILS % (AUTO) 4.5 % (0-6); HEMATOCRIT 38.2 % (35.0-45.0); HEMOGLOBIN 12.5 g/dl (12.0-16.0); LYMPHOCYTES # (AUTO) 2.2 X10'3 (1.1-4.8); LYMPHOCYTES % (AUTO) 27.5 % (21-51); MEAN CORPUSCULAR HEMOGLOBIN 27.6 PG (27.0-31.0); MEAN CORPUSCULAR HGB CONC 32.7 g/dL (33.0-36.5); MEAN CORPUSCULAR VOLUME 84.4 FL (78-98); MEAN PLATELET VOLUME 7.3 FL (7.4-10.4); MONOCYTES # (AUTO) 0.6 X10'3 (0-0.9); MONOCYTES % (AUTO) 7.4 % (2-12); NEUTROPHILS # (AUTO) 4.7 X10'3 (1.8-7.7); NEUTROPHILS % (AUTO) 58.9 % (42-75); PLATELET COUNT 305 X10'3 (140-440); RED BLOOD COUNT 4.53 X10'6 (4.20-5.60); RED CELL DISTRIBUTION WIDTH 14.3 % (11.5-14.5); WHITE BLOOD COUNT 7.9 X10'3 (4.5-11.0)
[2022-01-27 17:35] LABS: ALANINE AMINOTRANSFERASE 51 U/L (12-78); ALBUMIN 3.1 G/DL (3.4-5.0); ALBUMIN/GLOBULIN RATIO 0.7 (1.1-1.5); ALKALINE PHOSPHATASE 64 IU/L (46-116); ANION GAP 7 (8-16); ASPARTATE AMINO TRANSFERASE 50 U/L (10-37); BILIRUBIN,TOTAL 0.4 MG/DL (0.1-1.0); BLOOD UREA NITROGEN 24 MG/DL (7-18); BUN/CREATININE RATIO 21.6 (6.6-38.0); CALCIUM 8.5 MG/DL (8.5-10.1); CHLORIDE 107 MMOL/L (99-107); CREATININE 1.11 MG/DL (0.40-0.90); ETHANOL 0.023 GM/DL (0.0-0.010); GLUCOSE 99 MG/DL (70-104); MAGNESIUM 1.9 MG/DL (1.5-2.4); POTASSIUM 3.8 MMOL/L (3.5-5.1); SODIUM 143 MMOL/L (135-145); TOTAL CARBON DIOXIDE 28.9 MMOL/L (24-32); TOTAL PROTEIN 7.4 G/DL (6.4-8.2); eGFR 51 ML/MIN
[2022-01-27 17:42] LABS: TOTAL CELLS COUNTED 100
[2022-01-27 17:43] LABS: PLATELET ESTIMATE NORMAL; POIKILOCYTOSIS FEW
[2022-01-27 18:27] VITALS: BP 128/94
== END 2022-01-27 18:29 | disposition home or self-care (01) ==
LOC: ER 16:03
DX: R41.82 Altered mental status, unspecified (principal); I10 Essential (primary) hypertension; J45.909 Unspecified asthma, uncomplicated; Z87.442 Personal history of urinary calculi; Z88.8 Allergy status to other drugs, medicaments and biological substances; Z98.890 Other specified postprocedural states; Z79.899 Other long term (current) drug therapy
CPT/HCPCS: 36415; 70450; 80053; 80320; 83735; 85007; 85025; 93005; 99284; 99285

== ENCOUNTER 2022-02-13 21:12 | Emergency (ER) | payer MEDICAID ==
[~2022-02-13] VITALS: Ht 162.6 cm; Wt 135.0 kg
[2022-02-13 21:17] VITALS: BP 150/82
[2022-02-13 22:50] LABS: BASOPHILS % (AUTO) 0.5 % (0-1); EOSINOPHILS # (AUTO) 0.5 X10'3 (0-0.9); EOSINOPHILS % (AUTO) 5.1 % (0-6); HEMATOCRIT 39.2 % (35.0-45.0); LYMPHOCYTES # (AUTO) 3.7 X10'3 (1.1-4.8); LYMPHOCYTES % (AUTO) 42.4 % (21-51); MEAN CORPUSCULAR HEMOGLOBIN 28.4 PG (27.0-31.0); MEAN CORPUSCULAR HGB CONC 33.3 g/dL (33.0-36.5); MEAN CORPUSCULAR VOLUME 85.3 FL (78-98); MEAN PLATELET VOLUME 7.2 FL (7.4-10.4); MONOCYTES # (AUTO) 0.7 X10'3 (0-0.9); MONOCYTES % (AUTO) 8.1 % (2-12); NEUTROPHILS # (AUTO) 3.9 X10'3 (1.8-7.7); NEUTROPHILS % (AUTO) 43.9 % (42-75); PLATELET COUNT 361 X10'3 (140-440); RED CELL DISTRIBUTION WIDTH 14.2 % (11.5-14.5); WHITE BLOOD COUNT 8.8 X10'3 (4.5-11.0)
[2022-02-13 23:08] LABS: ALANINE AMINOTRANSFERASE 41 U/L (12-78); ALBUMIN 3.2 G/DL (3.4-5.0); ALBUMIN/GLOBULIN RATIO 0.7 (1.1-1.5); ALKALINE PHOSPHATASE 63 IU/L (46-116); ANION GAP 8 (8-16); ASPARTATE AMINO TRANSFERASE 24 U/L (10-37); BILIRUBIN,TOTAL 0.2 MG/DL (0.1-1.0); BLOOD UREA NITROGEN 20 MG/DL (7-18); BUN/CREATININE RATIO 16.3 (6.6-38.0); CALCIUM 8.6 MG/DL (8.5-10.1); CHLORIDE 104 MMOL/L (99-107); CREATININE 1.23 MG/DL (0.40-0.90); GLUCOSE 90 MG/DL (70-104); POTASSIUM 3.2 MMOL/L (3.5-5.1); SODIUM 140 MMOL/L (135-145); TOTAL CARBON DIOXIDE 27.7 MMOL/L (24-32); TOTAL PROTEIN 7.9 G/DL (6.4-8.2); eGFR 45 ML/MIN
== END 2022-02-14 00:31 | disposition left against medical advice (07) ==
LOC: ER 21:13
DX: Z00.8 Encounter for other general examination (principal); Z53.21 Procedure and treatment not carried out due to patient leaving prior to being seen by health care provider
CPT/HCPCS: 71045; 80053; 83880; 84484; 85025

== ENCOUNTER 2022-04-01 02:42 | Inpatient (IN) | payer MEDICAID ==
[~2022-04-01] VITALS: Ht 162.6 cm; Wt 60.0 kg
[2022-04-01] MEDS ORDERED: nitroGLYCERIN 0.4mg SUBLingual tab SL PRN (03:10)
[2022-04-01] MEDS ORDERED: meperidine/PF 50mg/ml syringe ONE (03:22)
[2022-04-01] MEDS: meperidine/PF 25mg/ml syringe IV ONE ×2 (03:33→05:06)
[2022-04-01] MEDS ORDERED: pantoprazole 40MG/NS 100ML BAG 100 ML IV ONE (03:40)
[2022-04-01] MEDS ORDERED: ondansetron/PF 4mg/2ml inj IV ONE (03:40)
[2022-04-01] MEDS ORDERED: tranexamic acid 1gm/0.7% sal. 100 ML IV ONE (03:40)
[2022-04-01] MEDS ORDERED: normal saline 1000ml 1,000 ML IV ONE (03:40)
[2022-04-01] MEDS ORDERED: pantoprazole IV 80 MG in normal saline 100ml IV soln 100 ML IV ONE (03:40)
[2022-04-01 03:44] LABS: BASOPHILS # (AUTO) 0.1 X10'3 (0-0.2); BASOPHILS % (AUTO) 0.7 % (0-1); EOSINOPHILS # (AUTO) 0.5 X10'3 (0-0.9); HEMATOCRIT 38.9 % (35.0-45.0); HEMOGLOBIN 12.7 g/dl (12.0-16.0); LYMPHOCYTES # (AUTO) 4.5 X10'3 (1.1-4.8); LYMPHOCYTES % (AUTO) 27.5 % (21-51); MEAN CORPUSCULAR HEMOGLOBIN 27.6 PG (27.0-31.0); MEAN CORPUSCULAR HGB CONC 32.6 g/dL (33.0-36.5); MEAN CORPUSCULAR VOLUME 84.7 FL (78-98); MEAN PLATELET VOLUME 7.2 FL (7.4-10.4); MONOCYTES # (AUTO) 1.4 X10'3 (0-0.9); MONOCYTES % (AUTO) 8.6 % (2-12); NEUTROPHILS # (AUTO) 9.9 X10'3 (1.8-7.7); NEUTROPHILS % (AUTO) 60.2 % (42-75); PLATELET COUNT 326 X10'3 (140-440); RED BLOOD COUNT 4.59 X10'6 (4.20-5.60); RED CELL DISTRIBUTION WIDTH 13.4 % (11.5-14.5); WHITE BLOOD COUNT 16.4 X10'3 (4.5-11.0)
[2022-04-01] MEDS: normal saline 1000ML IV soln IVB ONE ×2 (03:50→04:31)
[2022-04-01] MEDS ORDERED: pantoprazole 40 MG vial IV ONE (03:55)
[2022-04-01 04:01] LABS: APTT 27 SECONDS (22-32); D-DIMER 0.47 MG/L FEU (0-0.50)
[2022-04-01 04:06] LABS: ALANINE AMINOTRANSFERASE 53 U/L (12-78); ALBUMIN 3.4 G/DL (3.4-5.0); ALBUMIN/GLOBULIN RATIO 0.8 (1.1-1.5); ALKALINE PHOSPHATASE 53 IU/L (46-116); ANION GAP 7 (8-16); ASPARTATE AMINO TRANSFERASE 32 U/L (10-37); BILIRUBIN,TOTAL 0.3 MG/DL (0.1-1.0); BLOOD UREA NITROGEN 44 MG/DL (7-18); BUN/CREATININE RATIO 31.7 (6.6-38.0); CHLORIDE 101 MMOL/L (99-107); CREATININE 1.39 MG/DL (0.40-0.90); GLUCOSE 101 MG/DL (70-104); LIPASE 134 U/L (73-393); MAGNESIUM 1.6 MG/DL (1.5-2.4); POTASSIUM 3.6 MMOL/L (3.5-5.1); SODIUM 137 MMOL/L (135-145); TOTAL CARBON DIOXIDE 28.9 MMOL/L (24-32); TOTAL PROTEIN 7.8 G/DL (6.4-8.2); eGFR 39 ML/MIN
[2022-04-01 04:13] LABS: CALCIUM 8.3 MG/DL (8.5-10.1)
[2022-04-01 04:15] LABS: ETHANOL < 0.010 GM/DL (0.0-0.010)
[2022-04-01] MEDS ORDERED: iohexol 350MG/ML 100ml bottle IV ONE (04:22)
[2022-04-01] MEDS ORDERED: HYDROcodone/acetaminophen 5mg/325mg tablet PO PRN (05:25)
[2022-04-01] MEDS ORDERED: magnesium hydroxide 30ml (MOM) UD suspension PO PRN (05:25)
[2022-04-01] MEDS ORDERED: HYDROmorphone inj. 0.5 MG/0.5 ML DISP.SYRIN IV PRN (05:25)
[2022-04-01] MEDS ORDERED: ondansetron/PF 4mg/2ml inj IV PRN (05:25)
[2022-04-01] MEDS ORDERED: morphine 2 MG/ML inj. syringe IV PRN (05:25)
[2022-04-01] MEDS ORDERED: HYDROcodone/acetaminophen 10/325mg tab PO PRN (05:25)
[2022-04-01] MEDS ORDERED: ondansetron 4mg rapidly disintigrating tab PO PRN (05:25)
[2022-04-01] MEDS ORDERED: diphenhydrAMINE 25mg capsule PO PRN (05:25)
[2022-04-01] MEDS ORDERED: diphenhydrAMINE 50 mg/ml inj IV PRN (05:25)
[2022-04-01] MEDS ORDERED: bisacodyl 10mg suppository rectal RC PRN (05:25)
[2022-04-01] MEDS ORDERED: mag hydrox/Alum hydrox/simeth 30ml oral suspension PO PRN (05:25)
[2022-04-01] MEDS ORDERED: acetaminophen 325mg tablet PO PRN (05:25)
[2022-04-01] MEDS ORDERED: metoclopramide 5 mg/ml inj IV PRN (05:25)
[2022-04-01] MEDS: pantoprazole 40MG/NS 100ML BAG 100 ML IV SCH ×2 (06:00→11:45)
[2022-04-01 07:52] LABS: PHOSPHORUS 4.1 MG/DL (2.3-4.5)
[2022-04-01] MEDS: docusate sod 100mg capsule PO SCH ×2 (08:00→20:00)
[2022-04-01] MEDS ORDERED: CefTRIAXone/D5W-Rocephin 1gm 50 ML IV SCH (08:00)
[2022-04-01 08:27] LABS: CLARITY,URINE CLEAR (Clear); COLOR,URINE YELLOW (Yellow); GLUCOSE, URINE NEGATIVE (Neg); KETONES,URINE TRACE mg/dl (Neg); LEUKOCYTE ESTERASE ,URINE TRACE (Neg); NITRITES, URINE POSITIVE (Neg); OCCULT BLOOD,URINE MODERATE (Neg); PH,URINE 5.5 (4.8-8.0); PROTEIN,URINE NEGATIVE (Neg); UROBILINOGEN,URINE 0.2 E.U/dL (0.2-1.0)
[2022-04-01 08:33] LABS: UA COLLECTION TYPE CLN CATCH MIDSTREAM
[2022-04-01 08:38] LABS: BACTERIA,URINE 4+ /HPF (Neg); MUCUS STRANDS NONE SEEN /LPF (Neg); RBC,URINE 0-2 /HPF (0-2); SQUAMOUS EPITHELIAL CELL,UR FEW /LPF (FEW)
[2022-04-01 08:42] LABS: URINE AMPHETAMINE SCREEN POSITIVE (Neg); URINE BARBITUATE SCREEN NEGATIVE (Neg); URINE BENZODIAZEPINES SCREEN NEGATIVE (Neg); URINE CANNABINOID SCREEN POSITIVE (Neg); URINE COCAINE SCREEN NEGATIVE (Neg); URINE METHADONE SCREEN NEGATIVE (Neg); URINE OPIATE SCREEN NEGATIVE (Neg); URINE PHENCYCLIDINE SCREEN NEGATIVE (Neg)
[2022-04-01] MEDS: morphine 2 MG/ML inj. syringe IV PRN ×3 (09:03→22:10)
[2022-04-01] MEDS: dextrose 5%-1/2 normal saline 1,000 ML IV SCH ×2 (09:15→15:25)
[2022-04-01] MEDS: amLODIPine 5mg tablet PO SCH (12:51)
--- NOTE | 2022-04-01 17:29 | NUR ---
ATTEMPTED X 2 TO CALL REPORT TO ORTHO NEURO UNIT. UNABLE TO GIVE REPORT TO NURSE ASSIGNED TO PATIENT.
--- NOTE | 2022-04-01 17:50 | NUR ---
Called ER after returning to 4th floor from attending to patient in RR preparing to go to OR.
--- NOTE | 2022-04-01 18:39 | NUR ---
To 4015 at 1830 via . Report to Maggie BARAHONA now
[2022-04-01 18:46] VITALS: BP 168/105
[2022-04-01 22:29] VITALS: BP 100/52
[2022-04-02] VITALS (8 sets, daily range): BP systolic 127–169; BP diastolic 76–107
[2022-04-02] MEDS: dextrose 5%-1/2 normal saline 1,000 ML IV SCH ×2 (01:25→03:53)
[2022-04-02] MEDS: morphine 2 MG/ML inj. syringe IV PRN (03:53)
[2022-04-02 06:18] LABS: BASOPHILS # (AUTO) 0.1 X10'3 (0-0.2); BASOPHILS % (AUTO) 0.8 % (0-1); EOSINOPHILS # (AUTO) 0.3 X10'3 (0-0.9); EOSINOPHILS % (AUTO) 3.7 % (0-6); HEMATOCRIT 35.7 % (35.0-45.0); HEMOGLOBIN 11.6 g/dl (12.0-16.0); LYMPHOCYTES # (AUTO) 3.2 X10'3 (1.1-4.8); LYMPHOCYTES % (AUTO) 40.2 % (21-51); MEAN CORPUSCULAR HGB CONC 32.6 g/dL (33.0-36.5); MEAN CORPUSCULAR VOLUME 85.9 FL (78-98); MEAN PLATELET VOLUME 7.6 FL (7.4-10.4); MONOCYTES # (AUTO) 0.8 X10'3 (0-0.9); MONOCYTES % (AUTO) 10.1 % (2-12); NEUTROPHILS # (AUTO) 3.6 X10'3 (1.8-7.7); NEUTROPHILS % (AUTO) 45.2 % (42-75); PLATELET COUNT 249 X10'3 (140-440); RED BLOOD COUNT 4.15 X10'6 (4.20-5.60); RED CELL DISTRIBUTION WIDTH 13.8 % (11.5-14.5)
[2022-04-02 06:29] LABS: ALANINE AMINOTRANSFERASE 43 U/L (12-78); ALBUMIN 2.9 G/DL (3.4-5.0); ALBUMIN/GLOBULIN RATIO 0.8 (1.1-1.5); ALKALINE PHOSPHATASE 52 IU/L (46-116); ANION GAP 5 (8-16); ASPARTATE AMINO TRANSFERASE 29 U/L (10-37); BILIRUBIN,TOTAL 0.3 MG/DL (0.1-1.0); BLOOD UREA NITROGEN 19 MG/DL (7-18); CALCIUM 8.1 MG/DL (8.5-10.1); CHLORIDE 107 MMOL/L (99-107); CREATININE 0.95 MG/DL (0.40-0.90); GLUCOSE 101 MG/DL (70-104); SODIUM 143 MMOL/L (135-145); TOTAL CARBON DIOXIDE 31.2 MMOL/L (24-32); TOTAL PROTEIN 6.5 G/DL (6.4-8.2); eGFR 61 ML/MIN
--- NOTE | 2022-04-02 06:32 | NUR ---
Patient in room ORTHO 4015. I have received report from Maggie BARAHONA and had the opportunity to ask questions and assume patient care.
[2022-04-02] MEDS ORDERED: diphenhydrAMINE 50 mg/ml inj ONE (07:44)
[2022-04-02] MEDS ORDERED: LIDOcaine Viscous 15ml cup ONE (07:44)
[2022-04-02] MEDS ORDERED: MIDAZolam 1 MG/ML 5ML VIAL ONE (07:44)
[2022-04-02] MEDS ORDERED: fentaNYL/PF 50MCG/1 ML 2ML syringe ONE (07:44)
[2022-04-02] MEDS ORDERED: pantoprazole 40MG/NS 100ML BAG 100 ML IV SCH (08:00)
[2022-04-02] MEDS: amLODIPine 5mg tablet PO SCH (10:58)
[2022-04-02] MEDS: docusate sod 100mg capsule PO SCH (10:58)
[2022-04-02] MEDS ORDERED: levoFLOXACIN 250mg tablet PO SCH (11:00)
--- NOTE | 2022-04-02 13:13 | NUR ---
PAGER ID: [phone] MESSAGE: Bridgette Gaxiola [phone] Re: Yimi [id number] can we discharge patient was in room drinking alcohol. Addendum: 04/02/22 at 1331 by Bridgette Cohn RN Spoke to patient and in the room and advised that when we get discharge orders I would not be able to let her be discharged with driving because he has had alcohol. Per Patient they will be walking and taking the bus they do not drive. I also advised that the room door needs to stay open. Patient and verbalized understanding. Advised i am still waiting for discharge orders.
--- NOTE | 2022-04-02 13:56 | NUR ---
PAGER ID: [phone] MESSAGE: Bridgette Gaxiola [phone] Re: Aleks [id number] I think patient left AMA. Not in room IV was already out. Please call
--- NOTE | 2022-04-02 14:10 | NUR ---
Dr Palmer called back and is aware patient left AMA IV was already out and Tele monitor was already off. Security was called with no signs of patient or .
[2022-04-02] MEDS ORDERED: pantoprazole 40mg Tablet.DR PO SCH (20:00)
== END 2022-04-02 13:45 | disposition left against medical advice (07) | DRG 242 ==
LOC: ER 02:43 → ED HOLD 05:31 → ORTHO 4S 18:42
PROVIDERS: ADMIT Family Medicine; ATTEND Family Medicine
PROC: BW241ZZ Computerized Tomography (CT Scan) of Chest and Abdomen using Low Osmolar Contrast (ICD-10-PCS; 2022-04-01)
PROC: 0DB58ZX Excision of Esophagus, Via Natural or Artificial Opening Endoscopic, Diagnostic (ICD-10-PCS; principal; 2022-04-02)
PROC: 0DB68ZX Excision of Stomach, Via Natural or Artificial Opening Endoscopic, Diagnostic (ICD-10-PCS; 2022-04-02)
DX: K22.11 Ulcer of esophagus with bleeding (principal); N17.9 Acute kidney failure, unspecified; I13.0 Hypertensive heart and chronic kidney disease with heart failure and stage 1 through stage 4 chronic kidney disease, or unspecified chronic kidney disease; I50.32 Chronic diastolic (congestive) heart failure; D72.829 Elevated white blood cell count, unspecified; N13.30 Unspecified hydronephrosis; F15.90 Other stimulant use, unspecified, uncomplicated; K21.00 Gastro-esophageal reflux disease with esophagitis, without bleeding; J44.9 Chronic obstructive pulmonary disease, unspecified; K29.70 Gastritis, unspecified, without bleeding; K29.80 Duodenitis without bleeding; N18.9 Chronic kidney disease, unspecified; R13.10 Dysphagia, unspecified; Z53.29 Procedure and treatment not carried out because of patient's decision for other reasons; Z82.49 Family history of ischemic heart disease and other diseases of the circulatory system; Z87.440 Personal history of urinary (tract) infections; Z93.6 Other artificial openings of urinary tract status; Z87.442 Personal history of urinary calculi; Z88.7 Allergy status to serum and vaccine; Z79.899 Other long term (current) drug therapy
CPT/HCPCS: 36415; 43239; 70491; 71046; 71260; 80053; 80305; 80320; 81001; 83605; 83690; 83735; 84100; 84443; 84484; 85025; 85379; 85610; 85730; 86870; 86880; 86885; 86900; 86901; 86902; 86905; 86922; 87040; 87077; 87081; 87088; 87186; 93005; 96365; 96375; 99152; 99285; A4620; C9113; G0378; J0696; J1200; J2175; J2250; J2270; J2405; J3010; J3490; J7030; J7042; Q9967

== ENCOUNTER 2022-10-12 13:58 | Emergency (ER) | payer MEDICAID ==
[~2022-10-12] VITALS: Ht 162.6 cm; Wt 63.6 kg
[~2022-10-12 13:58] MED LIST changes: -CEPH-585 PO; -ONDA4TAB6 PO
[2022-10-12 16:23] LABS: CLARITY,URINE SLIGHTLY CLOUDY (Clear); COLOR,URINE YELLOW (Yellow); GLUCOSE, URINE NEGATIVE (Neg); KETONES,URINE NEGATIVE (Neg); LEUKOCYTE ESTERASE ,URINE MODERATE (Neg); NITRITES, URINE POSITIVE (Neg); OCCULT BLOOD,URINE NEGATIVE (Neg); PH,URINE 5.5 (4.8-8.0); PROTEIN,URINE TRACE mg/dl (Neg); UROBILINOGEN,URINE 0.2 E.U/dL (0.2-1.0)
[2022-10-12 16:28] LABS: UA COLLECTION TYPE CLN CATCH MIDSTREAM
[2022-10-12 16:33] LABS: BACTERIA,URINE 3+ /HPF (Neg); MUCUS STRANDS FEW /LPF (Neg); RBC,URINE NONE SEEN /HPF (0-2); SQUAMOUS EPITHELIAL CELL,UR MANY /LPF (FEW); WBC,URINE 30-50 /HPF (0-4)
[2022-10-12] MEDS ORDERED: cephalexin 250mg capsule PO ONE (17:20)
[2022-10-12 17:25] VITALS: BP 153/97
[2022-10-12 17:35] LABS: BASOPHILS # (AUTO) 0.1 X10'3 (0-0.2); BASOPHILS % (AUTO) 0.8 % (0-1); EOSINOPHILS # (AUTO) 0.3 X10'3 (0-0.9); EOSINOPHILS % (AUTO) 2.2 % (0-6); LYMPHOCYTES # (AUTO) 2.5 X10'3 (1.1-4.8); LYMPHOCYTES % (AUTO) 17.7 % (21-51); MEAN CORPUSCULAR HEMOGLOBIN 28.2 PG (27.0-31.0); MEAN CORPUSCULAR HGB CONC 32.5 g/dL (33.0-36.5); MEAN CORPUSCULAR VOLUME 86.7 FL (78-98); MEAN PLATELET VOLUME 7.2 FL (7.4-10.4); MONOCYTES # (AUTO) 0.8 X10'3 (0-0.9); MONOCYTES % (AUTO) 5.4 % (2-12); NEUTROPHILS # (AUTO) 10.4 X10'3 (1.8-7.7); NEUTROPHILS % (AUTO) 73.9 % (42-75); PLATELET COUNT 244 X10'3 (140-440); RED BLOOD COUNT 4.62 X10'6 (4.20-5.60); RED CELL DISTRIBUTION WIDTH 13.6 % (11.5-14.5); WHITE BLOOD COUNT 14.1 X10'3 (4.5-11.0)
[2022-10-12 17:53] LABS: ALANINE AMINOTRANSFERASE 42 U/L (12-78); ALBUMIN 3.1 G/DL (3.4-5.0); ALBUMIN/GLOBULIN RATIO 0.8 (1.1-1.5); ALKALINE PHOSPHATASE 62 IU/L (46-116); ANION GAP 6 (8-16); ASPARTATE AMINO TRANSFERASE 37 U/L (10-37); BILIRUBIN,TOTAL 0.8 MG/DL (0.1-1.0); BLOOD UREA NITROGEN 19 MG/DL (7-18); BUN/CREATININE RATIO 16.1 (10.0-20.0); CALCIUM 8.6 MG/DL (8.5-10.1); CHLORIDE 104 MMOL/L (99-107); CREATININE 1.18 MG/DL (0.40-0.90); GLUCOSE 118 MG/DL (70-104); POTASSIUM 3.2 MMOL/L (3.5-5.1); SODIUM 141 MMOL/L (135-145); TOTAL CARBON DIOXIDE 30.7 MMOL/L (24-32); TOTAL PROTEIN 7.1 G/DL (6.4-8.2); eGFR 47 ML/MIN
[2022-10-12] MEDS ORDERED: CEPH500C2 PO (18:25)
[2022-10-12] MEDS ORDERED: BENZ-38 PO (18:25)
[2022-10-12] MEDS ORDERED: benzonatate 100mg capsule PO ONE (18:25)
[2022-10-12] MEDS ORDERED: CefTRIAXone 1000mg IM Kit (w/lidocaine diluent) IM ONE (18:25)
[2022-10-12] MEDS ORDERED: acetaminophen 325mg tablet PO ONE (18:40)
== END 2022-10-12 19:13 | disposition home or self-care (01) ==
LOC: ER 13:58
DX: N12 Tubulo-interstitial nephritis, not specified as acute or chronic (principal); R05.9 Cough, unspecified; I10 Essential (primary) hypertension; J45.909 Unspecified asthma, uncomplicated; K21.9 Gastro-esophageal reflux disease without esophagitis; F17.200 Nicotine dependence, unspecified, uncomplicated; F12.90 Cannabis use, unspecified, uncomplicated; Z88.7 Allergy status to serum and vaccine
CPT/HCPCS: 36415; 71046; 80053; 81001; 85025; 96372; 99284; J0696

== ENCOUNTER 2024-01-13 09:00 | Emergency (ER) | payer MEDICAID ==
[~2024-01-13] VITALS: Ht 162.6 cm; Wt 61.9 kg
[2024-01-13 09:08] VITALS: TEMP 98.3
[2024-01-13 09:38] LABS: BASOPHILS # (AUTO) 0.1 X10'3 (0-0.2); BASOPHILS % (AUTO) 1.1 % (0-1); EOSINOPHILS # (AUTO) 0.3 X10'3 (0-0.9); EOSINOPHILS % (AUTO) 3.2 % (0-6); HEMATOCRIT 41.7 % (35.0-45.0); HEMOGLOBIN 13.3 g/dl (12.0-16.0); LYMPHOCYTES # (AUTO) 2.5 X10'3 (1.1-4.8); LYMPHOCYTES % (AUTO) 32.3 % (21-51); MEAN CORPUSCULAR HEMOGLOBIN 28.6 PG (27.0-31.0); MEAN CORPUSCULAR VOLUME 89.4 FL (78-98); MEAN PLATELET VOLUME 7.2 FL (7.4-10.4); MONOCYTES # (AUTO) 0.7 X10'3 (0-0.9); MONOCYTES % (AUTO) 8.4 % (2-12); NEUTROPHILS # (AUTO) 4.3 X10'3 (1.8-7.7); PLATELET COUNT 269 X10'3 (140-440); RED BLOOD COUNT 4.67 X10'6 (4.20-5.60); RED CELL DISTRIBUTION WIDTH 13.8 % (11.5-14.5); WHITE BLOOD COUNT 7.8 X10'3 (4.5-11.0)
[2024-01-13 09:57] LABS: ALANINE AMINOTRANSFERASE 72 U/L (12-78); ALBUMIN 3.4 G/DL (3.4-5.0); ALBUMIN/GLOBULIN RATIO 0.8 (1.1-1.5); ALKALINE PHOSPHATASE 55 IU/L (46-116); ANION GAP 10 (8-16); ASPARTATE AMINO TRANSFERASE 51 U/L (10-37); BILIRUBIN,TOTAL 0.6 MG/DL (0.1-1.0); BLOOD UREA NITROGEN 12 MG/DL (7-18); BUN/CREATININE RATIO 11.2 (10.0-20.0); CHLORIDE 104 MMOL/L (99-107); CREATININE 1.07 MG/DL (0.40-0.90); GLUCOSE 70 MG/DL (70-104); LIPASE 67 U/L (16-77); POTASSIUM 3.3 MMOL/L (3.5-5.1); SODIUM 143 MMOL/L (135-145); TOTAL CARBON DIOXIDE 29.2 MMOL/L (24-32); TOTAL PROTEIN 7.8 G/DL (6.4-8.2); eCRCL 49 ML/MIN; eGFR 52 ML/MIN
[2024-01-13 10:04] LABS: BILIRUBIN,URINE NEGATIVE (Neg); CLARITY,URINE SLIGHTLY CLOUDY (Clear); COLOR,URINE YELLOW (Yellow); GLUCOSE, URINE 100 mg/dl (Neg); KETONES,URINE NEGATIVE (Neg); LEUKOCYTE ESTERASE ,URINE SMALL (Neg); NITRITES, URINE POSITIVE (Neg); OCCULT BLOOD,URINE NEGATIVE (Neg); PROTEIN,URINE TRACE mg/dl (Neg); UROBILINOGEN,URINE 0.2 E.U/dL (0.2-1.0)
[2024-01-13 10:06] LABS: URINE HCG NEGATIVE (NEG)
[2024-01-13 10:11] LABS: UA COLLECTION TYPE CLN CATCH MIDSTREAM
[2024-01-13 10:12] LABS: BACTERIA,URINE 4+ /HPF (Neg); RBC,URINE NONE SEEN /HPF (0-2); SQUAMOUS EPITHELIAL CELL,UR MODERATE /LPF (FEW); WBC,URINE TNTC /HPF (0-4)
[2024-01-13 10:13] LABS: MUCUS STRANDS FEW /LPF (Neg); WBC CLUMPS,URINE FEW /HPF (NEGATIVE)
[2024-01-13] MEDS: LORazepam 2 mg/ml vial IV ONE (10:57)
[2024-01-13] MEDS: morphine 4 MG/ML inj SYRINge IV ONE (10:57)
[2024-01-13] MEDS: normal saline 1000ML IV soln IVB ONE (10:57)
[2024-01-13] MEDS: CefTRIAXone 2gm/D5W 50ml BAG 50 ML IV ONE (10:57)
[2024-01-13 13:05] VITALS: BP 198/114; PULSE 77; RESP 14; O2SAT 96
[2024-01-13] MEDS ORDERED: AMLO-140 PO (13:23)
[2024-01-13] MEDS ORDERED: TEMA15CA5 PO (13:23)
[2024-01-13] MEDS ORDERED: CIPR-202 PO (13:23)
== END 2024-01-13 13:55 | disposition home or self-care (01) ==
LOC: ER 09:01
DX: N10 Acute pyelonephritis (principal); I10 Essential (primary) hypertension; J45.909 Unspecified asthma, uncomplicated; K21.9 Gastro-esophageal reflux disease without esophagitis; F12.90 Cannabis use, unspecified, uncomplicated; Z88.7 Allergy status to serum and vaccine; Z79.899 Other long term (current) drug therapy; Z79.2 Long term (current) use of antibiotics
CPT/HCPCS: 36415; 76770; 80053; 81001; 81025; 83690; 85025; 87077; 87088; 87186; 96365; 96375; 99285; J0696; J2060; J2270; J7030

== ENCOUNTER 2024-07-23 15:41 | Emergency (ER) | payer MEDICAID ==
[~2024-07-23] VITALS: Ht 162.6 cm; Wt 62.4 kg
[~2024-07-23 15:41] MED LIST changes: +TEMA15CA5 PO
[2024-07-23 15:44] VITALS: BP 196/113; PULSE 117; O2SAT 96
[2024-07-23] MEDS: HYDROcodone/acetaminophen 10/325mg tab PO ONE (16:24)
[2024-07-23] MEDS ORDERED: HYDR-3965 PO (16:44)
[2024-07-23 17:00] VITALS: RESP 16; TEMP 98
== END 2024-07-23 17:01 | disposition home or self-care (01) ==
LOC: ER 15:42
DX: S66.911A Strain of unspecified muscle, fascia and tendon at wrist and hand level, right hand, initial encounter (principal); I10 Essential (primary) hypertension; J45.909 Unspecified asthma, uncomplicated; K21.9 Gastro-esophageal reflux disease without esophagitis; Z88.7 Allergy status to serum and vaccine; Z79.899 Other long term (current) drug therapy; Z87.440 Personal history of urinary (tract) infections; W19.XXXA Unspecified fall, initial encounter; Y93.89 Activity, other specified; Y92.89 Other specified places as the place of occurrence of the external cause; Y99.8 Other external cause status
CPT/HCPCS: 73080; 73090; 99284

== ENCOUNTER 2025-01-01 18:44 | Emergency (ER) | payer MEDICAID, OTHER ==
[~2025-01-01] VITALS: Ht 162.6 cm; Wt 60.5 kg
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
[2025-01-01] MEDS: ibuprofen tablet 400 MG TABLET PO ONE (19:27)
--- NOTE | 2025-01-01 19:55 | RADIOLOGY REPORT ---
CLINICAL INDICATION: INJURY TECHNIQUE: 4 radiographic views of the left wrist were obtained. Comparison: DI ELBOW, COMPLETE (3VW MIN) on DOS: 07/23/24 FINDINGS/IMPRESSION: There is no evidence of acute fracture or dislocation. The visualized joint space is well maintained. The alignment is anatomical. There is no radiopaque foreign body.
--- NOTE | 2025-01-01 20:09 | RADIOLOGY REPORT ---
Procedure: CT CT HEAD [facility] Study Date and Requested Time: 01/01/2025 07:44 PM History: INJURY Comparison: CT HEAD on DOS: 01/27/22 Dose: CTDI: 44.92 mGy DLP: 803.31 mGycm Technique: Multiplanar images obtained through the brain without intravenous contrast. Findings: Normal brain volume and formation. Mild 2 moderate chronic small vessel ischemic changes. No hemorrhages, masses, mass effect, midline shift, herniation or cytotoxic edema following a large v ascular territory. No intra-axial or extra-axial fluid collections. No evidence of hydrocephalus. The basal cisterns are patent. Nonspecific Partially Empty sella. The cerebellar tonsils are in normal position. Nonspecific promine nt cisterna magna. Otherwise, the cerebellum is unremarkable. The orbits and globes are unremarkable. Mucous retention cyst within the left maxillary sinus. Other ribera, the paranasal sinuses and mastoids are clear. There are no worrisome calvarial lesions. Impression: No evidence of acute intracranial abnormality.
--- NOTE | 2025-01-01 21:05 | RADIOLOGY REPORT ---
EXAM: CT CT CERVICAL SPINE INDICATION: INJURY EXAM DATE: 01/01/2025 07:47 PM COMPARISON: None TECHNIQUE: Multiple axial CT images of the cervical spine were obtained using bone algorithm. Axial a nd coronal reformatting was done. Bone and soft tissue windows were reviewed. Radiation Dose Information: CT Dose: CTDI volume is 17.25 mGy. Dose-length product is 179.13 mGy*cm FINDINGS: Ebw-hfc-gfdctnd cervical type vertebra. Straightening of the cervical lordosis. Vertebral body heig hts are maintained. No evidence of acute traumatic fractures or spondylolisthesis. Ufix-ah-[id number] d egenerative changes of the cervical spine. Moderate to severe degenerative changes of the right TMJ. Mucous retention cysts within the left maxi llary sinus with mucoperiosteal thickening of the right maxillary sinus. Bilateral palatine tonsilliths are noted. IMPRESSION: No evidence of acute cervical spine fracture or traumatic malalignment. All CT scans at this medical facility are performed using dose modulation techniques as appropriate t o a performed exam including the following: Automated exposure control was utilized; adjustment of th e MA and/or KV according to patient size; and use of iterative reconstruction technique.
[2025-01-01] MEDS ORDERED: CYCL-394 PO (21:38)
[2025-01-01] MEDS: cyclobenzaprine 10mg tablet PO ONE (21:46)
[2025-01-01 21:51] VITALS: BP 142/80; PULSE 70; RESP 16; TEMP 98.2; O2SAT 99
== END 2025-01-01 21:53 | disposition home or self-care (01) ==
LOC: ER 18:44
DX: M54.2 Cervicalgia (principal); M54.32 Sciatica, left side; M25.532 Pain in left wrist; J45.909 Unspecified asthma, uncomplicated; I10 Essential (primary) hypertension; K21.9 Gastro-esophageal reflux disease without esophagitis; F12.90 Cannabis use, unspecified, uncomplicated; Z88.7 Allergy status to serum and vaccine; Z79.899 Other long term (current) drug therapy; Z87.442 Personal history of urinary calculi; Z72.89 Other problems related to lifestyle; V89.2XXA Person injured in unspecified motor-vehicle accident, traffic, initial encounter; Y93.89 Activity, other specified; Y92.89 Other specified places as the place of occurrence of the external cause; Y99.8 Other external cause status
CPT/HCPCS: 70450; 72125; 73110; 99284